=== PATIENT | male | born 1970 | race Caucasian/White ===

== ENCOUNTER 2020-12-14 07:50 | Outpatient (REF) | payer OTHER, SELFPAY ==
[2020-12-14 13:29] LABS: Anion Gap 6.6 mmol/L (3-11); BUN 22 mg/dL (7-18); CO2 27.4 mmol/L (21.0-32.0); CREATININE 1.1 mg/dL (0.70-1.30); Calcium 8.8 mg/dL (8.5-10.1); Chloride 103 mmol/L (98-107); Glucose 101 mg/dL (74-106); Potassium 4.7 mmol/L (3.5-5.1); Sodium 137 mmol/L (136-145)
== END 2020-12-14 08:10 ==
LOC: NCHCN 07:50
PROVIDERS: Visit Provider Nurse Practitioner Community Health
DX: I10 Essential (primary) hypertension (principal)
CPT/HCPCS: 80048

== ENCOUNTER 2021-02-04 09:29 | Outpatient (REF) | payer OTHER, SELFPAY ==
[2021-02-04 14:23] LABS: TSH (W/Ref FT4) 1.91 uIU/mL (0.36-3.74)
== END 2021-02-04 09:30 | disposition home or self-care (01) ==
LOC: NCHCN 09:29
PROVIDERS: Visit Provider Nurse Practitioner Community Health
DX: I10 Essential (primary) hypertension (principal); Z13.29 Encounter for screening for other suspected endocrine disorder
CPT/HCPCS: 84443

== ENCOUNTER 2021-06-12 16:01 | Outpatient (REF) | payer SELFPAY ==
[2021-06-12 14:39] LABS: Anion Gap 9.3 mmol/L (3-11); BUN 20 mg/dL (7-18); CO2 27.7 mmol/L (21.0-32.0); Calcium 9.1 mg/dL (8.5-10.1); Calculated LDL 73 mg/dL (<100); Chloride 106 mmol/L (98-107); Cholesterol 131 mg/dL (<200); Glucose 108 mg/dL (74-106); HDL Cholesterol 44 mg/dL (40-60); Potassium 4.6 mmol/L (3.5-5.1); Sodium 143 mmol/L (136-145); Triglyceride 72 mg/dL (<150)
== END 2021-06-12 16:02 | disposition home or self-care (01) ==
LOC: NCHCN 16:01
PROVIDERS: Visit Provider Nurse Practitioner Community Health
DX: E78.5 Hyperlipidemia, unspecified (principal); I10 Essential (primary) hypertension
CPT/HCPCS: 80048; 80061

== ENCOUNTER 2021-08-07 14:16 | Outpatient (REF) | payer OTHER, SELFPAY ==
[2021-08-07 14:51] LABS: Anion Gap 7.6 mmol/L (3-11); BUN 18 mg/dL (7-18); CO2 29.4 mmol/L (21.0-32.0); Calcium 9.4 mg/dL (8.5-10.1); Chloride 103 mmol/L (98-107); Glucose 97 mg/dL (74-106); Potassium 4.4 mmol/L (3.5-5.1); Sodium 140 mmol/L (136-145)
== END 2021-08-07 14:17 | disposition home or self-care (01) ==
LOC: NCHCN 14:16
PROVIDERS: Visit Provider Nurse Practitioner Community Health
DX: I10 Essential (primary) hypertension (principal)
CPT/HCPCS: 80048

== ENCOUNTER 2022-07-14 16:28 | Outpatient (REF) | payer OTHER, SELFPAY ==
[2022-07-14 17:47] LABS: Anion Gap 11.5 mmol/L (3-11); BUN 13 mg/dL (7-18); CO2 26.5 mmol/L (21.0-32.0); CREATININE 0.9 mg/dL (0.70-1.30); Chloride 104 mmol/L (98-107); Estimated GFR 104.05 (mL/min/1.73m2); Glucose 103 mg/dL (74-106); Potassium 4.2 mmol/L (3.5-5.1); Sodium 142 mmol/L (136-145)
[2022-07-14 17:49] LABS: Hemoglobin A1C 5.6 % (<5.7)
== END 2022-07-14 16:29 | disposition home or self-care (01) ==
LOC: NCHCN 16:28
PROVIDERS: Visit Provider Family Medicine
DX: I10 Essential (primary) hypertension (principal); E78.5 Hyperlipidemia, unspecified; E66.01 Morbid (severe) obesity due to excess calories; J45.20 Mild intermittent asthma, uncomplicated
CPT/HCPCS: 80048; 83036

== ENCOUNTER 2023-05-29 15:31 | Outpatient (REF) | payer OTHER, SELFPAY ==
[2023-05-29 15:06] LABS: Hemoglobin A1C 5.4 % (<5.7)
[2023-05-29 15:10] LABS: Anion Gap 9.4 mmol/L (3-11); BUN 19 mg/dL (7-18); CO2 27.6 mmol/L (21.0-32.0); CREATININE 1.2 mg/dL (0.70-1.30); Calcium 9.5 mg/dL (8.5-10.1); Calculated LDL 149 mg/dL (<100); Chloride 103 mmol/L (98-107); Cholesterol 211 mg/dL (<200); Estimated GFR 73.22 (mL/min/1.73m2); Glucose 117 mg/dL (74-106); HDL Cholesterol 38 mg/dL (40-60); Potassium 3.7 mmol/L (3.5-5.1); Sodium 140 mmol/L (136-145); Triglyceride 122 mg/dL (<150)
== END 2023-05-29 15:32 | disposition home or self-care (01) ==
LOC: NCHCN 15:31
PROVIDERS: PCP Family Medicine; Visit Provider Family Medicine
DX: I10 Essential (primary) hypertension (principal); E78.5 Hyperlipidemia, unspecified; Z13.1 Encounter for screening for diabetes mellitus
CPT/HCPCS: 80048; 80061; 83036

== ENCOUNTER 2023-11-26 16:27 | Outpatient (REF) | payer OTHER, SELFPAY ==
[2023-11-25 21:53] LABS: COMMENT (LAB VIEW ONLY) 113.05 mg/dL; Microalb ug/mg Crea 5.4 ug/mg Cr
== END 2023-11-26 16:28 | disposition home or self-care (01) ==
LOC: NCHCN 16:27
PROVIDERS: PCP Family Medicine; Visit Provider Family Medicine
DX: I10 Essential (primary) hypertension (principal)
CPT/HCPCS: 82043; 82570

== ENCOUNTER 2023-12-09 08:23 | Outpatient (REF) | payer OTHER, SELFPAY ==
[2023-12-09 15:31] LABS: Anion Gap 9.9 mmol/L (3-11); BUN 21 mg/dL (7-18); CO2 26.1 mmol/L (21.0-32.0); CREATININE 1.1 mg/dL (0.70-1.30); Calcium 9.9 mg/dL (8.5-10.1); Chloride 101 mmol/L (98-107); Estimated GFR 81.28 (mL/min/1.73m2); Glucose 104 mg/dL (74-106); Potassium 4.1 mmol/L (3.5-5.1); Sodium 137 mmol/L (136-145)
== END 2023-12-09 08:24 | disposition home or self-care (01) ==
LOC: NCHCN 08:23
PROVIDERS: PCP Family Medicine; Visit Provider Family Medicine
DX: I10 Essential (primary) hypertension (principal)
CPT/HCPCS: 80048

== ENCOUNTER 2024-06-27 10:31 | Outpatient (REF) | payer OTHER, SELFPAY ==
--- OUTSIDE RECORDS SUMMARY | 2024-06-27 10:34 | XMS_ITS | Encounter Summary ---
Author Organization [facility] Address [address] [place] [address] Care Team Providers Care Sociology Adjunct Instructor Name Role Phone Unknown, Provider Primary Care Provider [phone] Encounter Details Date Type Department Care Team (Late st Contact Info) Description 10/21/2022 Prep for Procedure [facility] General Surgery [address] [place] [address] Handy Riley MD [address] [facility] [place] [address] [place] [address] Social History Tobacco Use Types Packs/Day Years Used Date Smoking Tobacco: Never Smokeless Tobacco: Former Alcohol Use Standard Drinks/Week Comments Yes 0 (1 standard drink = 0.6 oz pur e alcohol) very occasional Interpersonal Safety Answer Date Record ed Physically Hurt Never 06/17/2020 Verbally Threaten Not on file 06/17/2020 Sex and Gender Information Value Date Recorded Sex Assigned at Not on file Gender Identity Not on file Sexual Orientation Not on file documented as of this encounter Plan of Treatment Not on file documented as of this encounter Visit Diagnoses Not on filedocumented in this encounter Care Teams Sociology Adjunct Instructor Relationship Specialty Start Date End Date Unknown, Provider, PCP - General 04/30/17 04/25/23 documented as of this encounter
--- OUTSIDE RECORDS SUMMARY | 2024-06-27 10:34 | XMS_ITS | Encounter Summary ---
Author Organization [facility] Address [address] [place] [address] Care Team Providers Care Uplands Division Director Name Role Phone None, Provider Primary Care Provider Unavailabl e Encounter Details Date Type Department Care Team (Late st Contact Info) Description 08/31/2015 Results Only [facility] [phone] Florencio Harvey, DO [address] [facility] DEMI NELSON [address] [place] [id number] Social History Tobacco Use Types Packs/Day Years Used Date Smoking Tobacco: Never Assessed Sex and Gender Information Value Date Recorded Sex Assigned at Not on file Gender Identity Not on file Sexual Orientation Not on file documented as of this encounter Plan of Treatment Not on file documented as of this encounter Procedures Procedure Name Priority Date/Time Associated Diagnosis Comments SURGICAL PATHOLOGY Routine 08/31/2015 6:37 EDT documented in this encounter Results * SURGICAL PATHOLOGY (08/31/2015 6:37 EDT) Pathology Report: SURGICAL PATHOLOGY REPORT Reports generated via electronic interface contain original data; however they are lacking the format of the original report. Caution should be taken when reading/interpret ing unformatted reports. Name: ? EPI YOUNG ? Accession #: ? [id number] ? : ? 1970 (Age: 45) ??M ? Collect Date: ? 08/31/2015 ? Location: ? [facility] ? Receive Date: ? 09/01/2015 ? Provider: FLORENCIO HARVEY DO Copy to: ? Final Pathologic Diagnosis: SOFT TISSUE OF BACK/NECK, MASS, EXCISIONAL BIOPSY: - Lipoma. ??See comment. 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 ??The fact that this is a recurrent lesion is noted; there are no atypical histologic features to suggest an atypical lipomatous tumor. ?? Document reviewed and electronically signed by: CUAUHTEMOC SMITH MD Report ??Date: 09/06/2015 15:54 By the signature above, the attending physician certifies that he/she has personally conducted a gross and/or microscopic examination of the described specimens and rendered or confirmed the above diagnosis. Specimen(s) Received: Lipoma Clinical History: Lipoma back of neck, recurrent Gross Description: ? Received in formalin labelled with proper patient identification (initials M, R) and lipoma are multiple fragments of yellow lobulated adipose tissue (22 g, 6.7 x 6.5 x 1.7 cm in aggregate) with an incomplete disrupted capsule. Cut surfaces show homogenous glistening adipose tissue. Ukrainian Folk Arts Instructor sections are submitted in 1-8. 09/03/2015 10:59 AM End of Report [facility] 08/31/2015 6:37 EDT 09/01/2015 6:37 EDT Florencio Harvey DO PATHOLOGY ORDER JASMEET [facility] [address] [place] [address] documented in this encounter Visit Diagnoses Not on filedocumented in this encounter Care Teams Uplands Division Director Relationship Specialty Start Date End Date None, Provider PCP - General 04/04/13 04/29/17 documented as of this encounter
--- OUTSIDE RECORDS SUMMARY | 2024-06-27 10:34 | XMS_ITS | Encounter Summary ---
Author Organization [facility] Address [address] [place] [address] Care Team Providers Care Garage Mechanic Name Role Phone Unavailable Primary Care Provider Unavailabl e Encounter Details Date Type Department Care Team (Late st Contact Info) Description 07/05/2009 Hospital Visit [facility] Lorraine Prasad Discharge Disposition: Discharge Home Social History Tobacco Use Types Packs/Day Years Used Date Smoking Tobacco: Never Assessed Sex and Gender Information Value Date Recorded Sex Assigned at Not on file Gender Identity Not on file Sexual Orientation Not on file documented as of this encounter Plan of Treatment Not on file documented as of this encounter Procedures Procedure Name Priority Date/Time Associated Diagnosis Comments STREP SCREEN RAPID Routine 07/05/2009 8: 15 PM EDT documented in this encounter Results * RAPID STREP SCREEN (07/05/2009 8:15 PM EDT) Strep Screen Rapid NEGATIVE NEGATIVE [facility] Comment:SECOND SWAB HAS BEEN CULTURED 07/05/2009 8:15 PM EDT 07/05/2009 8:22 PM EDT Lorraine Prasad MICROBIOLOGY - GENER AL ORDERABLES [facility] [address] [place] [address] documented in this encounter Visit Diagnoses Not on filedocumented in this encounter
--- OUTSIDE RECORDS SUMMARY | 2024-06-27 10:34 | XMS_ITS | Encounter Summary ---
Author Organization [facility] Address [address] [place] [address] Care Team Providers Care After School Program Director Name Role Phone Unavailable Primary Care Provider Unavailabl e Encounter Details Date Type Department Care Team (Latest Contact Info) Description 12/13/2000 14:56 EST Hospital Encounter [address] [address] Alejandro Ramirez MD Discharge Disposition: Auto Discharge Social History Tobacco Use Types Packs/Day Years Used Date Smoking Tobacco: Never Assessed Sex and Gender Information Value Date Recorded Sex Assigned at Not on file Gender Identity Not on file Sexual Orientation Not on file documented as of this encounter Discharge Disposition Disposition Code Departure Means Destination Auto Discharge documented in this encounter Plan of Treatment Not on file documented as of this encounter Visit Diagnoses Not on filedocumented in this encounter
--- OUTSIDE RECORDS SUMMARY | 2024-06-27 10:34 | XMS_ITS | Encounter Summary ---
Author Organization [facility] Address [address] [place] [address] Care Team Providers Care Final Finisher Forging Dies Name Role Phone Unknown, Provider Primary Care Provider [phone] Encounter Details Date Type Department Care Team (Latest Contact Info) Description 06/23/2019 11:17 EDT - 06/23/2019 11:25 EDT Hospital Encounter [address] [address] Selene Galan, MUSTAPHA [address] [facility] [place] [id number] Discharge Disposition: Home or Self Care Social History Tobacco Use Types Packs/Day Years Used Date Smoking Tobacco: Never Assessed Sex and Gender Information Value Date Recorded Sex Assigned at Not on file Gender Identity Not on file Sexual Orientation Not on file documented as of this encounter Discharge Diagnoses Diagnosis E87.5 HYPERKALEMIA[ICD-10-CM] documented in this encounter Discharge Disposition Disposition Code Departure Means Destination Home or Self Care documented in this encounter Plan of Treatment Not on file documented as of this encounter Visit Diagnoses Not on filedocumented in this encounter Care Teams Final Finisher Forging Dies Relationship Specialty Start Date End Date Unknown, Provider, PCP - General 04/30/17 04/25/23 documented as of this encounter
--- OUTSIDE RECORDS SUMMARY | 2024-06-27 10:34 | XMS_ITS | Referral Summary ---
Author Organization [facility] Address [address] [place] [address] Care Team Providers Care Gas Leak Inspector Name Role Phone Isa Walker MD Primary Care Provider [phone] Allergies Active Allergy Reactions Criticality Noted Date Comments Mold 04/30/2017 Medications Medication Sig Dispensed Refills Start Date End Date Status chlorthalidone (HYGROTON) 25 mg tablet Take 0.5 Tablets by mouth daily. Active semaglutide (RYBELSUS) 14 mg tablet Take 14 mg by mouth daily. Active Cholecalciferol, Vitamin D3, 10 mcg (400 unit) tablet Take 400 Units by mouth daily. Active nicotine polacrilex (NICORETTE) 2 mg gum Take 1 Each by mouth every 2 hours. Active lisinopriL (PRINIVIL) 20 mg tablet Take 1 Tablet by mouth daily. 04/09/2023 Active verapamil (VERELAN) 360 mg CR capsule Take 1 Capsule by mouth daily. 04/01/2023 Active budesonide-formoterol HFA (SYMBICORT) 160-4.5 mcg/actuation HFA aerosol inhaler inhaler inhale 1 puff by mouth twice daily 02/08/2023 Active atorvastatin (LIPITOR) 40 mg tablet Take 1 Tablet by mouth every evening. 05/07/2022 Active albuterol 90 mcg/actuation inhaler INHALE 2 PUFFS BY MOUTH FOUR TIMES DAILY 04/08/2023 Active LORazepam (ATIVAN) 1 mg tabletIndications:Sit uational anxiety Take 0.5 Tablets by mouth 2 times daily as needed for Anxiety. Daily Max: 1 mg 3 Tablet 04/26/2023 Active Active Problems Problem Noted Date Diagnosed Date Encounter for screening colonoscopy Social History Tobacco Use Types Packs/Day Years Used Date Smoking Tobacco: Never Smokeless Tobacco: Former Tobacco Cessation:Counseling Given: Not Answered Alcohol Use Standard Drinks/Week Comments Yes 0 (1 standard drink = 0.6 oz pur e alcohol) very occasional PHQ-2 Answer Date Recorded PHQ-2 SUBTOTAL 2 04/26/2023 Interpersonal Safety Answer Date Record ed Physically Hurt Never 06/17/2020 Verbally Threaten Not on file 06/17/2020 Sex and Gender Information Value Date Recorded Sex Assigned at Not on file Gender Identity Not on file Sexual Orientation Not on file Last Filed Vital Signs Vital Sign Reading Time Taken Comments Blood Pressure 137/83 04/26/2023 1145 EDT Pulse 83 04/26/2023 1145 EDT Temperature 37 ??C (98.6 ??F) 04/26/2023 1145 EDT Respiratory Rate 14 10/21/2022 0925 EST Oxygen Saturation 97% 04/26/2023 1145 EDT Inhaled Oxygen Concentration - - Weight 130.2 kg (287 lb) 10/21/2022 0812 EST Height 177.8 cm (5' 10) 10/21/2022 0812 EST Body Mass Index 41.18 10/21/2022 0812 EST Plan of Treatment Not on file Procedures Procedure Name Priority Date/Time Associated Diagnosis Comments COLONOSCOPY Routine 10/21/2022 8:45 EST Encounter for screening colonoscopy from Last 3 Months or Most Recently Relevant to Health Maintenance Results * COLONOSCOPY (10/21/2022 8:45 EST) Anatomical Region Laterality Modality Endoscopy Narrative 10/21/2022 8:45 EST [facility] ?? [address] [place] [address] ?? Patient Name ?EPI YOUNG Date of ?1970 Record Number ?[id number] Date/Time of Procedure ?10/21/2022, 08:45:00 AM Endoscopist ?Handy Riley ?? Kitchen Clerk ? Referring Physician(s) ?? Debbie Chan M.D. Anesthesiologist ? Procedure Performed: COLONOSCOPY Indications for Exam: Screening Colonoscopy. Instruments: ? [id number] ([id number]) Medications: ?Fentanyl 100 mcg, Versed 5 mg I was in continuous face to face attendance during the administration of moderate sedation services that were monitored by an independent trained observer who had no other duties during the procedure. ? Visualization: ? Good ?Tolerance: Good ?Complications: None ? Extent of Exam: ?cecum ? Limitations: ?Suboptimal prep Procedure Technique: A physical exam was performed. Informed consent was obtained from the patient after explaining all the risks (perforation, bleeding, infection and adverse effects to the medicine) , benefits and alternatives to the procedure which the patient appeared to understand and so stated. ??The patient was connected to the monitoring devices and placed in the left lateral position. Continuous oxygen was provided with a nasal cannula and IV medicine administered thru an indwelling cannula. After adequate conscious sedation was achieved, a digital exam was performed and the colonoscope introduced into the rectum and advanced under direct visualization to the cecum which was identified by visual landmarks. The scope was subsequently removed slowly while carefully examining the color, texture, anatomy, and integrity of the mucosa on the way out. In the rectum the scope was retroflexed to evaluate for internal hemorrhoids and anorectal pathology. The patient was subsequently transferred to the recovery area in satisfactory condition. The following findings were noted: Findings: Normal rectal exam. ??Normal colon mucosa. ??No poyps or masses. ??Scattered diverticulosis of the sigmoid colon. Endoscopic Diagnosis: Normal screening colonoscopy Recommendations: Repeat colonoscopy in 10 years.Consider Golytely prep with next colonoscopy prep. Sedation Start: 08:31:20 AM ?? Sedation End: 08:51:29 AM Signature: Paddy Hunt.A.C.Gerson This note was electronically signed on 10/21/2022 11:41:44 AM By Handy [email or web address] Luz Maria Chan ASSEMBLER B[employer] GI PROCEDURE ORDERAB LES from Last 3 Months or Most Recently Relevant to Health Maintenance Care Teams Gas Leak Inspector Relationship Specialty Start Date End Date Isa Walker MD [address] [place] [phone] PCP - General 04/26/23
--- OUTSIDE RECORDS SUMMARY | 2024-06-27 10:34 | XMS_ITS | Encounter Summary ---
Author Organization [facility] Address [address] [place] [address] Care Team Providers Care All Around Patternmaker Name Role Phone Unknown, Provider Primary Care Provider [phone] Reason for Visit * Reason Onset Date Comments Colonoscopy 09/24/2022 Encounter Details Date Type Department Care Team (Late st Contact Info) Description 09/24/2022 Telephone [facility] [place] [address] [place] [address] Handy Riley MD [address] [facility] [address] [place] [address] Colonoscopy (/) Social History Tobacco Use Types Packs/Day Years Used Date Smoking Tobacco: Never Assessed Interpersonal Safety Answer Date Record ed Physically Hurt Never 06/17/2020 Verbally Threaten Not on file 06/17/2020 Sex and Gender Information Value Date Recorded Sex Assigned at Not on file Gender Identity Not on file Sexual Orientation Not on file documented as of this encounter Miscellaneous Notes * Telephone Encounter - Sallie Pugh - 09/25/2022 1321 EST Pt called back He is good to go for his colo on October 21. I have resent instructions to him They were emailed to: [email or web address] * Telephone Encounter - Sallie Pugh - 09/24/2022 1147 EST Pt ret'd my call He said he needs to check with his insurance company first. He said his recently had one done and they made her go go fabiola He will call me back on 09/25 * Telephone Encounter - Sallie Pugh - 09/24/2022 1136 EST [email or web address] ?? Pt was scheduled for a colonoscopy on 10/21. I need to speak with patient to find out if he received this information or not. ?? Reason is: When I was out for surgery, colo's were scheduled and the patients were not notified andthey didn't receive their colo packets. ?? Please transfer call to Sallie documented in this encounter Plan of Treatment Not on file documented as of this encounter Visit Diagnoses Not on filedocumented in this encounter Care Teams All Around Patternmaker Relationship Specialty Start Date End Date Unknown, Provider, PCP - General 04/30/17 04/25/23 documented as of this encounter
--- OUTSIDE RECORDS SUMMARY | 2024-06-27 10:34 | XMS_ITS | Encounter Summary ---
Author Organization [facility] Address [address] [place] [address] Care Team Providers Care Press Operator Meat Name Role Phone Unavailable Primary Care Provider Unavailabl e Encounter Details Date Type Department Care Team (Late st Contact Info) Description 11/27/2007 12:29 [facility] Hospital Encounter [address] [address] Demetra Colon MD Social History Tobacco Use Types Packs/Day Years [...]
--- OUTSIDE RECORDS SUMMARY | 2024-06-27 10:34 | XMS_ITS | Encounter Summary ---
Author Organization [facility] Address [address] [place] [address] Care Team Providers Care Actuarial Associate Name Role Phone Unknown, Provider Primary Care Provider Reason for Visit * Reason Onset Date Comments Colonoscopy 10/20/2022 Encounter Details Date Type Department Care Team (Late st Contact Info) Description 10/20/2022 Telephone [facility] [place] [address] [place] [address] Handy Riley MD [address] [facility] [address] [place] [address] Colonoscopy Social History Tobacco Use Types Packs/Day Years Used Date Smoking Tobacco: Never Assessed Interpersonal Safety Answer Date Record ed Physically Hurt Never 06/17/2020 Verbally Threaten Not on file 06/17/2020 Sex and Gender Information Value Date Recorded Sex Assigned at Not on file Gender Identity Not on file Sexual Orientation Not on file documented as of this encounter Miscellaneous Notes * Telephone Encounter - Candelaria Guadarrama RN - 10/20/2022 1444 EST Spoke with pt he has developed a cough and cold symptoms. Pt states he knows he does not have COVIDbut agrees to do a home test. Per Dr. Riley as long as COVID negative and if pt feels up for it we can proceed with the colonoscopy as planned. Pt understands and will call if COVID test is positive, otherwise he plans to proceed as scheduled tomorrow. No further interventions. * Telephone Encounter - Rosibel Olmos - 10/20/2022 1329 EST Patient is calling regarding his colonoscopy tomorrow. He states he developed some slight cold symptoms yesterday. He thinks it will be okay to proceed but thought he should talk to a nurse just in case. Please call him at [phone]. documented in this encounter Plan of Treatment Not on file documented as of this encounter Visit Diagnoses Not on filedocumented in this encounter Care Teams Actuarial Associate Relationship Specialty Start Date End Date Unknown, Provider, PCP - General 04/30/17 04/25/23 documented as of this encounter
--- OUTSIDE RECORDS SUMMARY | 2024-06-27 10:34 | XMS_ITS | Encounter Summary ---
Author Organization [facility] Address [address] [place] [address] Care Team Providers Care Fire Investigation Manager Name Role Phone None, Provider Primary Care Provider Unavailabl e Encounter Details Date Type Department Care Team (Latest Contact Info) Description 04/20/2017 10:11 EDT - 04/20/2017 10:12 EDT Hospital Encounter [address] [address] Vida Campbell NP [facility] [address] [place], [place] [id number] Discharge Disposition: Home or Self Care Social History Tobacco Use Types Packs/Day Years Used Date Smoking Tobacco: Never Assessed Sex and Gender Information Value Date Recorded Sex Assigned at Not on file Gender Identity Not on file Sexual Orientation Not on file documented as of this encounter Discharge Diagnoses Diagnosis I10 Essential (primary) hypertension-I10[ICD-10-CM] E55.9 Vitamin D deficiency, unspecified-E55.9[ICD-10-CM] documented in this encounter Discharge Disposition Disposition Code Departure Means Destination Home or Self Care documented in this encounter Plan of Treatment Not on file documented as of this encounter Visit Diagnoses Not on filedocumented in this encounter Care Teams Fire Investigation Manager Relationship Specialty Start Date End Date None, Provider PCP - General 04/04/13 04/29/17 documented as of this encounter
--- OUTSIDE RECORDS SUMMARY | 2024-06-27 10:34 | XMS_ITS | Encounter Summary ---
Author Organization [facility] Address [address] [place] [address] Care Team Providers Care Tradeshow Worker Name Role Phone Unknown, Provider Primary Care Provider [phone] Isa Walker MD Primary Care Provider [phone] Encounter Details Date Type Department Care Team (Late st Contact Info) Description 11/23/2019 Lab Requisition [facility] Pathology & Laboratory Medicine - [address] [address] Selene Galan PA-C [address] [place], [place] [phone] Essential (primary) hypertension Social History Tobacco Use Types Packs/Day Years Used Date Smoking Tobacco: Never Assessed Sex and Gender Information Value Date Recorded Sex Assigned at Not on file Gender Identity Not on file Sexual Orientation Not on file documented as of this encounter Plan of Treatment Not on file documented as of this encounter Procedures Procedure Name Priority Date/Time Associated Diagnosis Comments LIPID PROFILE (INCLUDES CHOLESTEROL, TRIGLYCERIDES, HDL, LDL) Today 11/23/2019 9:20 EST Essential (primary) hypertension COMPREHENSIVE METABOLIC PANEL (CMP) Today 11/23/2019 9:20 EST Essential (primary) hypertension documented in this encounter Results * LIPID PROFILE (INCLUDES CHOLESTEROL, TRIGLYCERIDES, HDL, LDL) (11/23/2019 9:20 EST) Cholesterol 198 See Note mg/dL 11/23/2019 17:14 EST [facility] Comment: Acceptable: ?<200 mg/dL Borderline High: 200-239 mg/dL High: ?> or = 240 mg/dL HDL 32 See Note mg/dL 11/23/2019 17:14 [facility] Comment: Low: ? <40 mg/dL Normal: ??40-60 mg/dL High: ?>60 mg/dL LDL, Calculated 118 See Note mg/dL 11/23/2019 17:14 [facility] Comment: Optimal: ? <100 mg/dL Near Optimal: ?100-129 mg/dL Borderline High: 130-159 mg/dL High: ?160-189 mg/dL Very High: ? > or = 190 mg/dL Triglyceride 242 See Note mg/dL 11/23/2019 17:14 [facility] Comment: Normal: ? <150 mg/dL Borderline High: ??150 - 199 mg/dL High: ? 200 - 499 mg/dL Very High: ?> or = 500 mg/dL Chol/HDL Ratio 6.2 See Note 11/23/2019 17:14 [facility] Comment: No reference range has been established for CHOL/HDL ratio. Non HDL Cholesterol 166 See Note mg/dL 11/23/2019 17:14 [facility] Comment: Desirable: ?<130 mg/dL Borderline High: ??130-159 mg/dL High: ? 160-189 mg/dL Very High: ?> or = 190 mg/dL Blood VENOUS BLOOD / Unknown Venipuncture / Unknown 11/23/2019 9:20 EST 11/23/2019 16:50 EST Selene Galan PA-C CHEMISTRY & BLOOD G ORDERABLES [facility] [address] [place] [address] * COMPREHENSIVE METABOLIC PANEL (CMP) (11/23/2019 9:20 EST) Sodium 137 136 - 145 mEq/L 11/23/2019 17:14 [facility] Potassium 4.9 3.5 - 5.0 mEq/L 11/23/2019 17:14 [facility] Chloride 105 96 - 110 mEq/L 11/23/2019 17:14 [facility] CO2 Total 22 22 - 32 mEq/L 11/23/2019 17:14 [facility] Glucose 100 70 - 100 mg/dL 11/23/2019 17:14 [facility] BUN 19 10 - 26 mg/dL 11/23/2019 17:14 [facility] Creatinine 0.85 0.66 - 1.25 mg/dL 11/23/2019 17:14 [facility] eGFR 104 >60 mL/min/1.7 3m2 11/23/2019 17:14 [facility] Comment:eGFR calculated shira greenfield CKD-EPI equation for non- Americans. Multiply eGFR by 1.16 for patients. Total Protein 7.2 6.3 - 8.2 g/dL 11/23/2019 17:14 [facility] Albumin 4.7 3.4 - 4.9 g/dL 11/23/2019 17:14 [facility] Alkaline Phosphatase 63 38 - 126 U/L 11/23/2019 17:14 [facility] AST 27 15 - 46 U/L 11/23/2019 17:14 [facility] ALT 34 <50 U/L 11/23/2019 17:14 [facility] Bilirubin, Total 0.8 <1.4 mg/dL 11/23/19 17:14 [facility] Calcium 9.6 8.5 - 10.5 mg/dL 11/23/2019 17:14 [facility] Calculated Calcium 9.0 8.5 - 10.5 mg/dL 11/23/2019 17:14 [facility] Blood VENOUS BLOOD / Unknown Venipuncture / Unknown 11/23/2019 9:20 EST 11/23/2019 16:50 EST Selene Galan PA-C CHEMISTRY & BLOOD G ORDERABLES [facility] [address] [place] [address] documented in this encounter Visit Diagnoses Diagnosis Essential (primary) hypertension Unspecified essential hypertension documented in this encounter Care Teams Tradeshow Worker Relationship Specialty Start Date End Date Unknown, Provider, PCP - General 04/30/17 04/25/23 Isa Walker MD [address] [place] [address] PCP - General 04/26/23 documented as of this encounter
--- OUTSIDE RECORDS SUMMARY | 2024-06-27 10:34 | XMS_ITS | Encounter Summary ---
Author Organization [facility] Address [address] [place] [address] Care Team Providers Care Sound Technician Supervisor Name Role Phone Unavailable Primary Care Provider Unavailabl e Encounter Details Date Type Department Care Team (Latest Contact Info) Description 11/13/2007 16:18 EST Hospital Encounter [address] [address] Mark Lima MD [address] [place] [phone] Discharge Disposition: Auto Discharge Social History Tobacco [...] Procedure Name Priority Date/Time Associated Diagnosis Comments CHEST PA AND LATERAL 11/13/2007 17:48 EST documented in this encounter Results * CHEST PA AND LATERAL (11/13/2007 17:48 EST) Anatomical Region Laterality Modality Other 11/13/2007 17:4 8 EST Narrative 05/07/2009 4:47 EDT savi haji pt [id number] 3-4 weeks cough weezing in non asthmatic diffuse wheezing on exam CHEST PA AND LAT ??Nov 13, 2007 5:48:00 PM Signs and Symptoms: ??savi cullen pt [id number] 3-4 weeks cough weezing in non asthmatic diffuse wheezing on exam Comparison: None Findings: ??PA and lateral views of the chest were obtained. ??The cardiomediastinal silhouette is within normal limits. Costophrenic angles are clear. Lungs are clear. No infiltrate is seen. There is no pneumothorax. Impression: Normal chest x-ray. I have personally reviewed the images and the above interpretation and agree with the findings. Procedure Note Franky Lara MD / Candace Erickson MD - 05/07/2009 [facility] pt [id number] 3-4 weeks cough weezing in non asthmatic diffuse wheezing on exam CHEST PA AND LAT Nov 13, 2007 5:48:00 PM Signs and Symptoms: savi [facility] pt [id number] 3-4 weeks cough weezing in non asthmatic diffuse wheezing on exam Comparison: None Findings: PA and lateral views of the chest were obtained. The cardiomediastinal silhouette is within normal limits. Costophrenic angles are clear. Lungs are clear. No infiltrate is seen. There is no pneumothorax. Impression: Normal chest x-ray. I have personally reviewed the images and the above interpretation and agree with the findings. Mark Lima MD IMG DIAGNOSTIC IMAGING ORDERABLES documented in this encounter Visit Diagnoses Not on filedocumented in this encounter
--- OUTSIDE RECORDS SUMMARY | 2024-06-27 10:34 | XMS_ITS | Encounter Summary ---
Author Organization [facility] Address [address] [place] [address] Care Team Providers Care Sba Business Development Officer Name Role Phone Isa Walker MD Primary Care Provider [phone] Reason for Visit * Reason Comments Insomnia HAS ANXIETY Encounter Details Date Type Department Care Team (Late st Contact Info) Description 04/26/2023 12:15 EDT Walk-In [address] [address] Jefferson Petersen MD [address] [place] [id number] Situational anxiety (Primary Dx) Social History Tobacco Use Types Packs/Day Years [...] on file documented as of this encounter Last Filed Vital Signs Vital Sign Reading Time Taken Comments Blood Pressure 137/83 04/26/2023 1145 EDT Pulse 83 04/26/2023 1145 EDT Temperature 37 ??C (98.6 ??F) 04/26/2023 1145 EDT Respiratory Rate - - Oxygen Saturation 97% 04/26/2023 1145 EDT Inhaled Oxygen Concentration - - Weight - - Height - - Body Mass Index - - documented in this encounter Patient Instructions * Patient Instructions* Jefferson Petersen MD - 04/26/2023 12:15 EDT 1. Regarding your symptoms, this is consistent with situational anxiety. I recommend that you do asmuch as you can to distract yourself from thinking about the issues. This could include exercise, project work, or other activities that you may enjoy. Additionally we will send a prescription to your pharmacy for lorazepam 1 mg and I recommend that you can take half a tablet twice a day as needed.Do not take this medication with alcohol and it is not recommended to take the medication before driving or operating heavy machinery. I recommend that you follow-up with your primary care physician and if you have any persistent or new concerning symptoms please do not hesitate to follow-up at [facility] as well. documented in this encounter Ordered Prescriptions Prescription Sig Dispensed Refills Start Date End Da te LORazepam (ATIVAN) 1 mg tabletIndications:Situatio nal anxiety Take 0.5 Tablets by mouth 2 times daily as needed for Anxiety. Daily Max: 1 mg 3 Tablet 04/26/2023 documented in this encounter Progress Notes * Dalia Barboza LPN - 04/26/2023 1215 EDT CC/HPI: Covid Screening: In the last 72 hours, has the patient had: New or unusual cough, shortness of breath, new nasal congestion, sore throat, fever, chills, body aches, or new loss of taste or smell without a reasonable alternative diagnosis*? (If yes, assign to ARC)- NO In the past 10 days, has the patient had a positive Covid test OR a confirmed close Covid exposure (<6ft for > 15mins in 24hr period)? (if yes, assign to ARC, regardless of vaccination status)-NO *may be determined by RN or in discussion with available provider (REPRODUCTION TECHNICIAN's and CCA's can defer to Charge Nurse to complete triage when appropriate) PCP: Isa Walker LEFT MESSAGE TO CALL BACK * Jefferson Petersen MD - 04/26/2023 1215 EDT [place] Primary Care Assessment & Plan: 1. Situational anxiety LORazepam (ATIVAN) 1 mg tablet Aureliano Llamas is a pleasant 53 yrs old male with situational anxiety. Patient Instructions 1. Regarding your symptoms, this is consistent with situational anxiety. I recommend that you do asmuch as you can to distract yourself from thinking about the issues. This could include exercise, project work, or other activities that you may enjoy. Additionally we will send a prescription to your pharmacy for lorazepam 1 mg and I recommend that you can take half a tablet twice a day as needed.Do not take this medication with alcohol and it is not recommended to take the medication before driving or operating heavy machinery. I recommend that you follow-up with your primary care physician and if you have any persistent or new concerning symptoms please do not hesitate to follow-up at [facility] as well. Subjective: Chief Complaint(s): Insomnia (HAS ANXIETY) HPI: Aureliano Llamas is a pleasant 53 yrs old male who comes in today noting that a few months ago he reached out for an employee retention program for covid relief. He brought it to his management accountant and hegan to wonder if it was a scam. Now he is quite worried that he might be at risk. Now he is having anxiety and can't sleep. This has happened in the past. He can't stop thinking that he might have screwed up. It feels like there is something pouring into his body. Normally he is not like this. 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 At the time he took prozac whichworked for him. He has an appointment with his PCP in [place] tomorrow. He is having a hard time sl eeping. He is hoping to get something to help him sleep tonight. 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 He has had a counselor in the past and tries to do some breathing exercises. I have reviewed patient's tobacco history: reports that he has never smoked. He has quit using smokeless tobacco. I have reviewed and updated pertinent problem list, PMHx,PSHx,SocHx, allergies, and medications today. ROS Objective: Examination: Vitals: BP 137/83 (BP Cuff Location: Right arm, BP Patient Position: Sitting, BP Cuff Sizes: Adult, large) Pulse 83 Temp 37 ??C (98.6 ??F) (Skin) SpO2 97% There is no height or weight on file to calculate BMI. General Exam: GENERAL APPEARANCE: no acute distress, pleasant, cooperative. HEENT: NCAT, anicteric sclera. NECK: No masses noted, trachea midline CHEST: normal shape and expansion. EXTREMITIES: no clubbing, no cyanosis, no edema. SKIN: warm & dry. FACE: no lesions. NEUROLOGIC EXAM: alert & oriented, gait normal. Data reviewed with patient: I have reviewed the pertinent laboratory and diagnostic information in the chart with the patient and answered all questions today. Jefferson Petersen MD An appropriate medical screening examination was performed. The patient was assessed prior to discharge and deemed stable for discharge home. I spent a total of 28 minutes on the date of this encounter meeting with the patient and reviewing documentation/coordinating care as described in the above note. documented in this encounter Plan of Treatment Not on file documented as of this encounter Visit Diagnoses Diagnosis Situational anxiety- Primary Other anxiety states documented in this encounter Discontinued Medications Medication Sig Discontinue Reason Start Date End Da te lisinopriL (PRINIVIL) 10 mg tablet Take 1 Tablet by mouth daily. 04/26/2023 verapamil (CALAN-SR) 180 mg CR tablet Take 1 Tablet by mouth daily. 04/26/2023 documented as of this encounter Historical Medications * This list may reflect changes made after this encounter. Medication Sig Dispensed Refills Start Date End Date albuterol 90 mcg/actuation inhaler INHALE 2 PUFFS BY MOUTH FOUR TIMES DAILY 04/08/2023 atorvastatin (LIPITOR) 40 mg tablet Take 1 Tablet by mouth every evening. 05/07/2022 budesonide-formoterol HFA (SYMBICORT) 160-4.5 mcg/actuation HFA aerosol inhaler inhaler inhale 1 puff by mouth twice daily 02/08/2023 verapamil (VERELAN) 360 mg CR capsule Take 1 Capsule by mouth daily. 04/01/2023 lisinopriL (PRINIVIL) 20 mg tablet Take 1 Tablet by mouth daily. 04/09/2023 added in this encounter Care Teams Sba Business Development Officer Relationship Specialty Start Date End Date Isa Walker MD [address] [place] [address] PCP - General 04/26/23 documented as of this encounter
--- OUTSIDE RECORDS SUMMARY | 2024-06-27 10:34 | XMS_ITS | Encounter Summary ---
Author Organization [facility] Address [address] [place] [address] Care Team Providers Care Paste Plant Supervisor Name Role Phone Unavailable Primary Care Provider Unavailabl e Encounter Details Date Type Department Care Team (Late st Contact Info) Description 11/13/[address] [facility] [address] [place] [address] Mark Lima MD [address] [place] [phone] Social History Tobacco Use Types Packs/Day Years Used Date Smoking Tobacco: Never Assessed Sex and Gender Information Value Date Recorded Sex Assigned at Not on file Gender Identity Not on file Sexual Orientation Not on file documented as of this encounter Progress Notes * Mark Lima MD - 01/06/2010 0638 EST [facility] - Physician Summary Registration Date/Time: 11/13/2007 16:26 Arrived- By private vehicle. Historian- patient. HISTORY OF PRESENT ILLNESS Chief Complaint: COUGH. This started about 21 days and is still present (chronic cough starting in the setting of a URI, with scant mucous and some wheezing, ). The illness is described as moderate. He has had a cough. The patient has had scant amounts of sputum. No fever, muscle aches or chills. Patient has not had similar symptoms previously. Not recently seen/assessed. REVIEW OF SYSTEMS No headache, eye discomfort, nausea, vomiting or diarrhea. No abdominal pain. PAST HISTORY Asthma ? hx of mild exercise induced asthma. Medications: None. though he tried his 's albuterol with some relief.. Allergies: No known drug allergies. SOCIAL HISTORY Nonsmoker. FAMILY HISTORY Negative. PHYSICAL EXAM Appearance: Alert. No acute distress. Eyes: Eyes normal inspection. ENT: Ears normal. Nose normal. Pharynx normal. Neck: Normal inspection. Neck supple. CVS: Normal heart rate and rhythm. Heart sounds normal. Respiratory: No respiratory distress. Wheezing present (diffuse, good air movement, 90% resolved after albuterol nebulizer treatment.). Abdomen: Abdomen soft and nontender. No organomegaly. Skin: Normal skin color. Skin warm and dry. No rash. Neuro: Oriented X 3. No motor deficit. No sensory deficit. LABS, X-RAYS, AND EKG Chest X-ray: Normal Chest X-Ray (faint bronchialar prominence). PROGRESS AND PROCEDURES E.D. Course: good clinical response to albuterol, moderate improvement of his peak flow. Disposition: Discharged home in good condition. CLINICAL IMPRESSION Chronic asthmatic bronchitis (bacterial). INSTRUCTIONS Take clear liquids only. (Steamy showers to clear lungs after 2 albuterol puffs spaced 10 minutes apart. Get evaluated if you get more short of breath or are not getting better consistently over the next week. You may want to try some diphenhydramine [generic benedryl] to help control post nasal drip.). Your Current Medications: Continue taking the following medications: none. Prescription Medications: Albuterol HFA oral inhaler: inhale 2 puffs each 6 hours until symptoms resolve as needed for wheezing. Dispense one (1) unit. One refill (may use non-hfa). Doxycycline 100 mg: Take 1 capsule orally every 12 hours for 10 days. No refill. Prednisone 20 mg: take 2 orally every day for 5 days. Dispense ten (10). No refills. Understanding of the discharge instructions verbalized by patient. (Electronically signed by Mark Lima MD 11/13/2007 19:38) Care Center - Nursing Summary Registration Date/Time: 11/13/2007 16:26 TRIAGE Initial Assessment Triage time 16:43. BP: 142 / 92 sitting L arm manual. HR: 84. RR: 16. Temp: 98.2 oral. O2 saturation: 98 % to 99% ra. --1649 Dianna Driver R.N. RR: 22 ( after changing to gown). O2 saturation: 95 % room air. --1655 Dianna Driver R.N.. Medications None. --1649 Dianna Driver R.N.. Allergies (seasonal allergies). No known drug allergies. --1649 Dianna Driver R.N.. History Chief Complaint: WHEEZING. Onset (2 1/2 weeks ago). Pain level now: 12/26. Pain level (h/a). The patient has had a moderate nonproductive cough. The patient has had low grade fever. (wheezing upon exertion and at hs). No difficulty breathing. Treatment JOURNEYMAN MOLDER: (pt has used 's albuterol inhaler x 2 days with some relief). PAST HX: No infectious disease exposure. (lipoma to neck). (sinusitis, obesity, seasonal asthma). SOCIAL HX: Alcohol use; consumes four liquor weekly. Nonsmoker. No report of abuse. Arrived by private vehicle. Historian: patient. --1649 Dianna Driver R.N.. PAST HX. PHYSICAL ASSESSMENT Ambulatory to room. Alert. Oriented X 3. Respirations not labored. The patient can speak in full sentences. Wheezes bilaterally. Skin is warm and dry. --1653 Dianna Driver R.N.. NURSING PROGRESS NOTES (report given to George Cleveland). --1657 Dianna Driver R.N. (report given to MD Lima). --1658 Dianna Driver R.N. ALBUTEROL nebulizer treatment #1 (2.5 mg in 3 mL NS) given by nurse. Time-out completed immediately before the procedure: verified identity of patient (name and birthdate). Peak flow: 250, prior to neb treatment (adequate effort). --1803 Linda Cleveland L.P.N. Peak flow: 270 liters/min. --1848 Dianelys Sethi R.N. Time-out completed immediately before the procedure per protocol: verified identity of patient (name and birthdate) and procedure; verification done by care team (nurse). . --1857 Marzena Delarosa R.N.. DISPOSITION / DISCHARGE at departure: stable. Patient reports pain level on departure as 0/10. No learning barriers present. Discharge instructions reviewed with the patient. Reviewed medication dosing and course; prescription (s) given to the patient (Prednisone,Dicloxicillin, Albuterol). Patient verbalized understanding. Written instructions provided in [place]. The patient was discharged home. The patient left the Emergency Department ambulatory. --4220 Marzena Delarosa R.N.. Locked/Released at 11/13/2007 18:59 by Marzena Delarosa R.N. documented in this encounter Plan of Treatment Not on file documented as of this encounter Visit Diagnoses Not on filedocumented in this encounter
--- OUTSIDE RECORDS SUMMARY | 2024-06-27 10:34 | XMS_ITS | Encounter Summary ---
Author Organization [facility] Address [address] [place] [address] Care Team Providers Care Special Diet Cook Name Role Phone None, Provider Primary Care Provider Unavailabl e Encounter Details Date Type Department Care Team (Late st Contact Info) Description 04/20/2017 Results Only [facility] [phone] Vida Campbell NP [facility] [address] [place], [place] [id number] Social History Tobacco Use Types Packs/Day Years Used Date Smoking Tobacco: Never Assessed Sex and Gender Information Value Date Recorded Sex Assigned at Not on file Gender Identity Not on file Sexual Orientation Not on file documented as of this encounter Plan of Treatment Not on file documented as of this encounter Procedures Procedure Name Priority Date/Time Associated Diagnosis Comments VITAMIN D (25,OH) Routine 04/20/2017 19: 16 EDT COMPLETE BLOOD COUNT AND DIFFERENTIAL Routine 04/20/2017 19:16 EDT TSH Routine 04/20/2017 19:16 EDT LIPID PROFILE (INCLUDES CHOLESTEROL, TRIGLYCERIDES, HDL, LDL) Routine 04/20/2017 19:16 EDT COMPREHENSIVE METABOLIC PANEL (CMP) Routine 04/20/2017 19:16 EDT documented in this encounter Results * (ABNORMAL) VITAMIN D (25,OH) (04/20/2017 19:16 EDT) 25OH Vitamin D Tot 16.9(L) 30 - 100 ng/ml 04/21/2017 14:54 EDT [facility] Comment: Reference Range: Deficient = <10 ng/ml Insufficient = 10-30 ng/ml Sufficient = 30-100 ng/ml Toxic = >100 ng/ml BLOOD SPECIMEN / Unknown 04/20/2017 19:16 EDT 04/20/2017 19:16 EDT Vida Campbell CAREER DEVELOPMENT SPECIALIST CHEMISTRY & BLOOD GA S ORDERABLES Performing Organization Address [facility] Co de Phone Number [facility] [address] [place] [address] * TSH (04/20/2017 19:16 EDT) TSH 2.21 0.55 - 4.78 uIU/ml 04/20/2017 21:35 EDT [facility] BLOOD SPECIMEN / Unknown 04/20/2017 19:16 EDT 04/20/2017 19:16 EDT Vida Campbell CAREER DEVELOPMENT SPECIALIST CHEMISTRY & BLOOD GA S ORDERABLES Performing Organization Address [facility] de Phone Number [facility] [address] [place] [address] * LIPID PROFILE (INCLUDES CHOLESTEROL, TRIGLYCERIDES, HDL, LDL) (04/20/2017 19:16 EDT) Cholesterol 194 mg/dl 04/20/2017 20:16 [facility] Comment: Desirable:<200 Borderline High:200-239 High:>ng=229 Triglycerides 250 mg/dl 04/20/2017 20:16 [facility] Comment: Normal:<150 Borderline High:150-199 High:200-499 Very High:>sh=528 HDL 35 mg/dl 04/20/2017 20:16 [facility] Comment: Low:<40 Normal:40-60 Desirable: >60 LDL, Calculated 109 mg/dl 7 20:16 [facility] Comment: Optimal:<100 Near Optimal:100-129 Borderline High:130-159 High:160-189 Very High:>rj=944 Chol/HDL Ratio 5.5 04/20/2017 20:16 [facility] Fasting? Unknown 04/20/2017 19:17 [facility] Non HDL Cholesterol 159 mg/dl 04/20/2017 20:16 [facility] Comment: Desirable:<130 Borderline:130-159 High: 160-189 Very High: >fz=118 BLOOD SPECIMEN / Unknown 04/20/2017 19:16 EDT 04/20/2017 19:16 EDT Vida Campbell NP CHEMISTRY & BLOOD GA S ORDERABLES [facility] [address] [place] [address] * COMPREHENSIVE METABOLIC PANEL (CMP) (04/20/2017 19:16 EDT) Potassium 4.7 3.5 - 5.0 mEq/L 04/20/2017 20:16 [facility] Sodium 142 136 - 145 mEq/L 04/20/2017 20:16 [facility] Chloride 103 96 - 110 mEq/L 04/20/2017 20:16 [facility] CO2 27 22 - 32 mEq/L 04/20/2017 20:16 [facility] Total Alkaline Phosphatase 59 38 - 126 U/L 04/20/2017 20:16 [facility] Bilirubin, Total 0.7 <1.4 mg/dl 04/20/20 17 20:16 [facility] AST 23 15 - 46 U/L 04/20/2017 20:16 [facility] ALT 42 21 - 72 U/L 04/20/2017 20:16 [facility] Albumin 4.7 3.4 - 4.9 g/dl 04/20/2017 20:16 [facility] Total Protein 7.5 6.3 - 8.2 g/dl 04/20/2017 20:16 [facility] Creatinine 0.98 0.66 - 1.25 mg/dl 04/20/2017 20:16 [facility] GFR, Calculated 93 >60 ml/min/1.7 3m2 04/20/2017 20:16 [facility] Comment: eGFR calculated using CKD-EPI equation for non Americans. Multiply eGFR by 1.16 for Americans. BUN 19 10 - 26 mg/dl 04/20/2017 20:16 [facility] Calcium 9.8 8.5 - 10.5 mg/dl 04/20/2017 20:16 [facility] Calculated Calcium 9.2 8.5 - 10.5 mg/dl 04/20/2017 20:16 [facility] Glucose, Serum 97 70 - 100 mg/dl 04/20/2017 20:16 [facility] Fasting? Unknown 04/20/2017 19:17 [facility] BLOOD SPECIMEN / Unknown 04/20/2017 19:16 EDT 04/20/2017 19:16 EDT Vida Campbell NP CHEMISTRY & BLOOD GA S ORDERABLES [facility] [address] [place] [address] * HEMAGRAM AND DIFFERENTIAL (04/20/2017 19:16 EDT) WBC 5.77 4.0 - 10.4 K/cmm 04/20/2017 20:05 [facility] RBC 5.11 4.36 - 5.78 M/cmm 04/20/2017 20:05 [facility] Hemoglobin 14.6 13.8 - 17.3 gm/dl 04/20/2017 20:05 [facility] HCT 43.3 39.5 - 50.2 % 04/20/2017 20:05 [facility] MCV 85 81 - 95 fl 04/20/2017 20:05 [facility] MCH 28.6 27.6 - 33.0 pg 04/20/2017 20:05 [facility] MCHC 33.7 32.8 - 36.4 gm/dl 04/20/2017 20:05 [facility] RDW-CV 12.1 <14.2 % 04/20/2017 20:05 [facility] RDW-SD 37.1 <46.0 fl 04/20/2017 20:05 [facility] PLT 200 141 - 377 K/cmm 04/20/2017 20:05 [facility] MPV 11.7 9.5 - 12.7 fl 04/20/2017 20:05 [facility] % Neutrophils 63.3 % 04/20/2017 20:05 [facility] % Lymphocytes 26.3 % 04/20/2017 20:05 [facility] % Monocytes 6.9 % 04/20/2017 20:05 [facility] % Eosinophils 2.6 % 04/20/2017 20:05 [facility] % Basophils 0.7 % 04/20/2017 20:05 [facility] % Immature Grans 0.2 % 04/20/2017 20:05 [facility] ABS Neutrophils 3.65 2.20 - 8.85 K/cmm 04/20/2017 20:05 [facility] ABS Lymphs 1.52 1.09 - 3.30 K/cmm 04/20/2017 20:05 [facility] ABS Monocytes 0.40 0.1 - 0.8 K/cmm 04/20/2017 20:05 [facility] ABS Eosinophils 0.15 0.03 - 0.61 K/cmm 04/20/2017 20:05 [facility] ABS Basophils 0.04 0.01 - 0.11 K/cmm 04/20/2017 20:05 [facility] ABS Immature Grans 0.01 0 - 0.06 K/cmm 04/20/2017 20:05 [facility] Type of Diff: Automated 04/20/2017 20:05 [facility] BLOOD SPECIMEN / Unknown 04/20/2017 19:16 EDT 04/20/2017 19:16 EDT Vida Campbell NP PACKAGES & DNA PROBE ORDERABLES [facility] [address] [place] [address] documented in this encounter Visit Diagnoses Not on filedocumented in this encounter Care Teams Special Diet Cook Relationship Specialty Start Date End Date None, Provider PCP - General 04/04/13 04/29/17 documented as of this encounter
--- OUTSIDE RECORDS SUMMARY | 2024-06-27 10:34 | XMS_ITS | Encounter Summary ---
Author Organization [facility] Address [address] [place] [address] Care Team Providers Care Family Preservation Officer Name Role Phone Unknown, Provider Primary Care Provider [phone] Encounter Details Date Type Department Care Team (Latest Contact Info) Description 06/07/2019 17:52 EDT - 06/08/2019 18:06 EDT Hospital Encounter [address] [address] Selene Galan, [place] [address] [facility] [place], [place] [id number] Discharge Disposition: Home or Self Care Social History Tobacco Use Types Packs/Day Years Used Date Smoking Tobacco: Never Assessed Sex and Gender Information Value Date Recorded Sex Assigned at Not on file Gender Identity Not on file Sexual Orientation Not on file documented as of this encounter Discharge Diagnoses Diagnosis Z00.00 Encounter for general adult medical examination without abnormal findings-Z00.00[ICD-10-CM] documented in this encounter Discharge Disposition Disposition Code Departure Means Destination Home or Self Care documented in this encounter Plan of Treatment Not on file documented as of this encounter Visit Diagnoses Not on filedocumented in this encounter Care Teams Family Preservation Officer Relationship Specialty Start Date End Date Unknown, Provider, PCP - General 04/30/17 04/25/23 documented as of this encounter
--- OUTSIDE RECORDS SUMMARY | 2024-06-27 10:34 | XMS_ITS | Encounter Summary ---
Author Organization [facility] Address [address] [place] [address] Care Team Providers Care Roll Carrier Name Role Phone Unknown, Provider Primary Care Provider Reason for Visit * Reason Comments Allergic Reaction pt to ed via ems, c/ o allergic reaction s/p reciving increasing doses of allergy tratments at the allergy clinic today. medicated by ems detective captain, pt with improving sxs. Encounter Details Date Type Department Care Team (Late st Contact Info) Description 04/30/2017 15:25 EDT - 04/30/2017 17:40 EDT Emergency [facility] Emergency Department - [address] [address] Ricardo Mejia, PA-C [address] [place] [address], [address] [place] [address] Emergency, Default, Allergic reaction, initial encounter (Primary Dx) Discharge Disposition: Home or Self Care Social History Tobacco Use Types Packs/Day Years Used Date Smoking Tobacco: Never Assessed Sex and Gender Information Value Date Recorded Sex Assigned at Not on file Gender Identity Not on file Sexual Orientation Not on file documented as of this encounter Last Filed Vital Signs Vital Sign Reading Time Taken Comments Blood Pressure 154/99 04/30/2017 1600 EDT Pulse - - Temperature 37.6 ??C (99.7 ??F) 04/30/2017 1538 EDT Respiratory Rate 18 04/30/2017 1715 EDT Oxygen Saturation 95% 04/30/2017 1715 EDT Inhaled Oxygen Concentration - - Weight 114.3 kg (252 lb) 04/30/2017 1538 EDT Height 177.8 cm (5' 10) 04/30/2017 1538 EDT Body Mass Index 36.16 04/30/2017 1538 EDT documented in this encounter Discharge Diagnoses Diagnosis T78.40XA Allergy, unspecified, initial encounter-T78.40XA[ICD-10-CM] documented in this encounter Discharge Instructions * Discharge Instructions* Ricardo Mejia PA - 04/30/2017 17:34 EDT Prednisone as directed, beginning tomorrow Albuterol inhaler as needed Benadryl 50 mg every 6-8 hours for 24 hours If you have facial swelling, lip swelling, tongue swelling, throat tightness or difficulty breathing, please use the EpiPen and return to the emergency department, call 911 Contact your cut plug packer tomorrow * Attachments The following attachments cannot be sent through Care Everywhere. * ALLERGIC REACTION (PASHTO) documented in this encounter Medications at Time of Discharge Medication Sig Dispensed Refills Start Date End Date predniSONE (DELTASONE) 50 mg tablet Take 1 Tab by mouth daily for 3 days. 3 Tab 04/30/2017 05/03/2017 documented as of this encounter Ordered Prescriptions Prescription Sig Dispensed Refills Start Date End Da te predniSONE (DELTASONE) 50 mg tablet Take 1 Tab by mouth daily for 3 days. 3 Tab 04/30/2017 05/03/2017 documented in this encounter Discharge Disposition Disposition Code Departure Means Destination Home or Self Care Car Home documented in this encounter ED Notes * Musa Lara RN - 04/30/2017 1700 EDT Pt ambulated to bathroom with steady gait and without assist. * Ricardo Mejia PA - 04/30/2017 1630 EDT DOS: 04/30/2017 Chief Complaint Patient presents with ??? Allergic Reaction pt to ed via ems, c/o allergic reaction s/p reciving increasing doses of allergy tratments at the allergy clinic today. medicated by ems detective captain, pt with improving sxs. HPI The patient is a 47 y.o. male who presents today with Allergic Reaction (pt to ed via ems, c/o allergic reaction s/p reciving increasing doses of allergy tratments at the allergy clinic today. medicated by ems detective captain, pt with improving sxs.) HPI Comments: 47-year-old male presents after an allergic reaction. Patient was getting allergy shots when he developed shortness of breath roughly 2 minutes later. He was treated with epinephrine, 60 mg prednisone, 50 mg Benadryl and albuterol prior to arrival. Patient currently states he feels fine, denies any shortness of breath. He does not believe he had any facial, lip or tongue swelling.Denies any change in voice. Patient denies any hives or other rash. He does have another EpiPen with him. This occurred roughly 2 hours ago. The history is provided by the patient. Allergic Reaction Associated symptoms: shortness of breath Associated symptoms: no rash Review of Systems Review of Systems HENT: Positive for facial swelling. Respiratory: Positive for shortness of breath. Negative for stridor. Skin: Negative for rash. Allergies Allergen Reactions ??? Mold Vital Signs Temp: 37.6 ??C (99.7 ??F) Temp src: Temporal Heart Rate: 94 BPM Resp: 18 SpO2: 95 % BP: (!) 154/99 BP MAP: 111 mm Hg Physical Exam Constitutional: He appears well-developed and well-nourished. No distress. HENT: Head: Normocephalic and atraumatic. Mouth/Throat: Oropharynx is clear and moist. No oropharyngeal swelling Eyes: EOM are normal. Neck: Normal range of motion. Cardiovascular: Regular rhythm, normal heart sounds and intact distal pulses. Tachycardia present. Pulmonary/Chest: Effort normal and breath sounds normal. No stridor. No respiratory distress. He has no wheezes. Breathing nonlabored Neurological: He is alert. He has normal strength. He is not disoriented. No sensory deficit. Skin: Skin is warm and dry. No rash noted. Rash is not urticarial. Psychiatric: He has a normal mood and affect. His behavior is normal. Nursing note and vitals reviewed. RESULTS EKG orders: None Radiology orders: None ED Lab Results Labs Reviewed - No data to display Relevant Data Procedures ED COURSE A medical screening exam was performed. Patient presents after an allergic reaction while getting allergy shots. Prior to arrival he was given epinephrine, prednisone, Benadryl and albuterol with improvement. He has no complaints while here. He was observed, continues to have no complaints. On repeat exam, no wheezing. He has an EpiPen with him. Given short course of prednisone. Given an albuterol inhaler. Discharged in no acute distress with return precautions. ASSESSMENT AND PLAN Final diagnoses: Allergic reaction, initial encounter DISPOSITION: Discharged The patient's pain was managed to an adequate level weighing risk vs. benefit of further medications. Upon departure from the Emergency Department, the patient's pain was 0 on a zero to ten scale. Condition at departure from the Emergency Department: Good PCP: Doctor Unknown MDM Number of Diagnoses or Management Options Allergic reaction, initial encounter: Amount and/or Complexity of Data Reviewed Review and summarize past medical records: yes Geronimo Sewell was consulted and agrees with treatment plan. 05/01/2017 13:31 No flowsheet data found. documented in this encounter Plan of Treatment Not on file documented as of this encounter Visit Diagnoses Diagnosis Allergic reaction, initial encounter- Primary documented in this encounter Care Teams Roll Carrier Relationship Specialty Start Date End Date Unknown, Provider, PCP - General 04/30/17 04/25/23 documented as of this encounter
--- OUTSIDE RECORDS SUMMARY | 2024-06-27 10:34 | XMS_ITS | Encounter Summary ---
Author Organization [facility] Address [address] [place] [address] Care Team Providers Care Financial Systems Administrator Name Role Phone None, Provider Primary Care Provider Unavailabl e Encounter Details Date Type Department Care Team (Latest Contact Info) Description 08/31/2015 15:44 EDT - 08/31/2015 23:59 EDT Hospital Encounter [address] [address] Unknown, Provider, Discharge Disposition: Home or Self Care Social History Tobacco Use Types Packs/Day Years Used Date Smoking Tobacco: Never Assessed Sex and Gender Information Value Date Recorded Sex Assigned at Not on file Gender Identity Not on file Sexual Orientation Not on file documented as of this encounter Discharge Disposition Disposition Code Departure Means Destination Home or Self [facility] documented in this encounter Plan of Treatment Not on file documented as of this encounter Visit Diagnoses Not on filedocumented in this encounter Care Teams Financial Systems Administrator Relationship Specialty Start Date End Date None, Provider PCP - General 04/04/13 04/29/17 documented as of this encounter
--- OUTSIDE RECORDS SUMMARY | 2024-06-27 10:34 | XMS_ITS | Referral Summary ---
Author Organization [facility] Address [address] [place] [address] Care Team Providers Care Career Development Director Name Role Phone Unavailable Primary Care Provider Unavailabl e Social History Tobacco Use Types Packs/Day Years Used Date Smoking Tobacco: Never Assessed Sex and Gender Information Value Date Recorded Sex Assigned at Not on file Gender Identity Not on file Sexual Orientation Not on file Plan of Treatment Not on file
--- OUTSIDE RECORDS SUMMARY | 2024-06-27 10:34 | XMS_ITS | Encounter Summary ---
Author Organization [facility] Address [address] [place] [address] Care Team Providers Care Metal Buffer Name Role Phone Unknown, Provider Primary Care Provider [phone] Encounter Details Date Type Department Care Team (Late st Contact Info) Description 06/07/2019 Results Only [facility] [phone] Selene Galan PA-C [address] [place] [address] Social History Tobacco Use Types Packs/Day Years Used Date Smoking Tobacco: Never Assessed Sex and Gender Information Value Date Recorded Sex Assigned at Not on file Gender Identity Not on file Sexual Orientation Not on file documented as of this encounter Plan of Treatment Not on file documented as of this encounter Procedures Procedure Name Priority Date/Time Associated Diagnosis Comments THYROID CASCADE Routine 06/07/2019 9:20 EDT COMPLETE BLOOD COUNT Routine 06/07/2019 9:20 EDT LIPID PROFILE (INCLUDES CHOLESTEROL, TRIGLYCERIDES, HDL, LDL) Routine 06/07/2019 9:20 EDT COMPREHENSIVE METABOLIC PANEL (CMP) Routine 06/07/2019 9:20 EDT documented in this encounter Results * THYROID CASCADE (06/07/2019 9:20 EDT) TSH 2.79 0.47 - 4.68 uIU/ml 06/07/2019 20:14 EDT [facility] Comment: TSH cascade is not recommended for patients in which pituitary or hypothalamic disorders are suspected. The results of this assay can be falsely lowered due to the consumption of Biotin. BLOOD SPECIMEN / Unknown 06/07/2019 9:20 EDT 06/07/2019 19:14 EDT Selene Dietrichdebra PA-C CHEMISTRY & BLOOD G ORDERABLES Performing Organization Address [facility] Co de Phone Number [facility] [address] [place] [address] * LIPID PROFILE (INCLUDES CHOLESTEROL, TRIGLYCERIDES, HDL, LDL) (06/07/2019 9:20 EDT) Cholesterol 171 mg/dl 06/07/2019 19:36 T [facility] Comment: Desirable:<200 Borderline High:200-239 High:>tu=054 Triglycerides 104 mg/dl 06/07/2019 19:36 [facility] Comment: Normal:<150 Borderline High:150-199 High:200-499 Very High:>ii=771 HDL 38 mg/dl 06/07/2019 19:36 [facility] Comment: Low:<40 Normal:40-60 Desirable: >60 LDL, Calculated 112 mg/dl 9 19:36 [facility] Comment: Optimal:<100 Near Optimal:100-129 Borderline High:130-159 High:160-189 Very High:>gh=563 Chol/HDL Ratio 4.5 06/07/2019 19:36 [facility] Fasting? Unknown 06/07/2019 19:36 [facility] Non HDL Cholesterol 133 mg/dl 06/07/2019 19:36 [facility] Comment: Desirable:<130 Borderline:130-159 High: 160-189 Very High: >pu=099 BLOOD SPECIMEN / Unknown 06/07/2019 9:20 EDT 06/07/2019 19:14 EDT Selene Gloria Adama PA-C CHEMISTRY & BLOOD G ORDERABLES Performing Organization Address [facility] Co de Phone Number [facility] [address] [place] [address] * (ABNORMAL) COMPREHENSIVE METABOLIC PANEL (CMP) (06/07/2019 9:20 [facility]) Potassium 5.2(H) 3.5 - 5.0 mEq/L 06/07/2019 19:36 [facility] Sodium 138 136 - 145 mEq/L 06/07/2019 19:36 [facility] Chloride 102 96 - 110 mEq/L 06/07/2019 19:36 [facility] CO2 28 22 - 32 mEq/L 06/07/2019 19:36 [facility] Total Alkaline Phosphatase 52 38 - 126 U/L 06/07/2019 19:36 [facility] Bilirubin, Total 0.6 <1.4 mg/dl 06/07/20 19:36 [facility] AST 29 15 - 46 U/L 06/07/2019 19:36 [facility] ALT 51 21 - 72 U/L 06/07/2019 19:36 [facility] Albumin 4.5 3.4 - 4.9 g/dl 06/07/2019 19:36 [facility] Total Protein 6.8 6.3 - 8.2 g/dl 06/07/2019 19:36 [facility] Creatinine 0.86 0.66 - 1.25 mg/dl 06/07/2019 19:36 [facility] GFR, Calculated 103 >60 ml/min/1.7 3m2 06/07/2019 19:36 [facility] Comment: eGFR calculated using CKD-EPI equation for non Americans. Multiply eGFR by 1.16 for Americans. BUN 19 10 - 26 mg/dl 06/07/2019 19:36 [facility] Calcium 9.2 8.5 - 10.5 mg/dl 06/07/2019 19:36 [facility] Calculated Calcium 8.8 8.5 - 10.5 mg/dl 06/07/2019 19:36 [facility] Glucose, Serum 94 70 - 100 mg/dl 06/07/2019 19:36 [facility] Fasting? Unknown 06/07/2019 19:36 EDT [facility] BLOOD SPECIMEN / Unknown 06/07/2019 9:20 EDT 06/07/2019 19:14 EDT Selene Galan PA-C CHEMISTRY & BLOOD G ORDERABLES Performing Organization Address [facility] de Phone Number [facility] [address] [place] [address] * COMPLETE BLOOD COUNT (06/07/2019 9:20 EDT) WBC 4.15 4.0 - 10.4 K/cmm 06/07/2019 19:32 [facility] RBC 5.13 4.36 - 5.78 M/cmm 06/07/2019 19:32 [facility] Hemoglobin 14.8 13.8 - 17.3 gm/dl 06/07/2019 19:32 [facility] HCT 43.7 39.5 - 50.2 % 06/07/2019 19:32 [facility] MCV 85 81 - 95 fl 06/07/2019 19:32 [facility] MCH 28.8 27.6 - 33.0 pg 06/07/2019 19:32 [facility] MCHC 33.9 32.8 - 36.4 gm/dl 06/07/2019 19:32 [facility] RDW-CV 12.4 <14.2 % 06/07/2019 19:32 [facility] RDW-SD 38.5 <46.0 fl 06/07/2019 19:32 [facility] PLT 183 141 - 377 K/cmm 06/07/2019 19:32 [facility] MPV 11.1 9.5 - 12.7 fl 06/07/2019 19:32 [facility] BLOOD SPECIMEN / Unknown 06/07/2019 9:20 EDT 06/07/2019 19:14 EDT Selene Galan PA-C HEMATOLOGY & PF4 OR DERABLES [facility] [address] [place] [address] documented in this encounter Visit Diagnoses Not on filedocumented in this encounter Care Teams Metal Buffer Relationship Specialty Start Date End Date Unknown, Provider, PCP - General 04/30/17 04/25/23 documented as of this encounter
--- OUTSIDE RECORDS SUMMARY | 2024-06-27 10:34 | XMS_ITS | Encounter Summary ---
Author Organization [facility] Address [address] [place] [address] Care Team Providers Care Shotgun Shell Loading Machine Operator Name Role Phone None, Provider Primary Care Provider Unavailabl e Encounter Details Date Type Department Care Team (Latest Contact Info) Description 11/13/2015 16:33 EST - 11/13/2015 23:59 EST Hospital Encounter [id number] [place] [address] Nikolas Ventura, Discharge Disposition: Auto Discharge Social History Tobacco Use Types Packs/Day Years Used Date Smoking Tobacco: Never Assessed Sex and Gender Information Value Date Recorded Sex Assigned at Not on file Gender Identity Not on file Sexual Orientation Not on file documented as of this encounter Discharge Diagnoses Diagnosis Z01.89 Encounter for other specified special examinations-Z01.89[ICD-10-CM] documented in this encounter Discharge Disposition Disposition Code Departure Means Destination Auto Discharge Home documented in this encounter Plan of Treatment Not on file documented as of this encounter Procedures Procedure Name Priority Date/Time Associated Diagnosis Comments SED RATE Routine 11/13/2015 19:01 EST COMPLETE BLOOD COUNT Routine 11/13/2015 19:01 EST C REACTIVE PROTEIN Routine 11/13/2015 19 :01 EST COMPREHENSIVE METABOLIC PANEL (CMP) Routine 11/13/2015 19:01 EST CHEST PA AND LATERAL 11/13/2015 16:59 EST documented in this encounter Results * SED. RATE:YOSEF (11/13/2015 19:01 EST) Sed. Rate Yosef Disregard previous report, specimen clotted 0 - 15 mm/hr 11/13/2015 19:09 [facility] Comment:Corrected on 11/13 A T 1909: Previously reported as 4 BLOOD SPECIMEN / Unknown 11/13/2015 19:01 EST 11/13/2015 19:01 EST Nikolas Ventura DO HEMATOLOGY & PF4 OR DERABLES Performing Organization Address [facility] Co de Phone Number [facility] [address] [place] [address] * (ABNORMAL) C REACTIVE PROTEIN (11/13/2015 19:01 EST) C Reactive Protein 21.6(H) <10.0 mg/L 11/13/2015 19:46 [facility] Comment: Note units change to mg/L. Values will be 10 fold higher than with previous units of mg/dl. BLOOD SPECIMEN / Unknown 11/13/2015 19:01 EST 11/13/2015 19:01 EST Nikolas Ventura DO CHEMISTRY & BLOOD G ORDERABLES Performing Organization Address [facility] Co de Phone Number [facility] [address] [place] [address] * COMPREHENSIVE METABOLIC PANEL (CMP) (11/13/2015 19:01 EST) Potassium 4.7 3.5 - 5.0 mEq/L 11/13/2015 19:46 [facility] Sodium 139 136 - 145 mEq/L 11/13/2015 19:46 [facility] Chloride 102 96 - 110 mEq/L 11/13/2015 19:46 [facility] CO2 25 24 - 32 mEq/L 11/13/2015 19:46 [facility] Total Alkaline Phosphatase 72 38 - 126 U/L 11/13/2015 19:46 [facility] Bilirubin, Total 0.6 <1.4 mg/dl 11/13/20 15 19:46 [facility] AST 43 15 - 46 U/L 11/13/2015 19:46 [facility] ALT 69 21 - 72 U/L 11/13/2015 19:46 [facility] Albumin 4.5 3.4 - 4.9 g/dl 11/13/2015 19:46 [facility] Total Protein 7.3 6.3 - 8.2 g/dl 11/13/2015 19:46 [facility] Creatinine 1.05 0.66 - 1.25 mg/dl 11/13/2015 19:46 [facility] GFR, Calculated 87 >60 ml/min/1.7 3m2 11/13/2015 19:46 [facility] Comment: eGFR calculated using CKD-EPI equation for non Americans. Multiply eGFR by 1.16 for Americans. BUN 19 10 - 26 mg/dl 11/13/2015 19:46 [facility] Calcium 9.6 8.5 - 10.5 mg/dl 11/13/2015 19:46 [facility] Calculated Calcium 9.5 8.5 - 10.5 mg/dl 11/13/2015 19:46 [facility] Glucose, Serum 93 70 - 100 mg/dl 11/13/2015 19:46 [facility] Fasting? Unknown 11/13/2015 19:01 [facility] BLOOD SPECIMEN / Unknown 11/13/2015 19:01 EST 11/13/2015 19:01 EST Nikolas Ventura DO CHEMISTRY & BLOOD G ORDERABLES Performing Organization Address City/State/[facility] Co de Phone Number [facility] [address] [place] [address] * HEMAGRAM (11/13/2015 19:01 EST) WBC Clotted 4.0 - 10.4 K/cmm 11/13/2015 19:08 [facility] Comment: Specimen unsuitable for analysis. Credit Issued RBC Clotted 4.36 - 5.78 M/cmm 11/13/2015 19:08 [facility] Comment: Specimen unsuitable for analysis. Credit Issued Hemoglobin Clotted 13.8 - 17.3 gm/dl 11/13/2015 19:08 [facility] Comment: Specimen unsuitable for analysis. Credit Issued HCT Clotted 39.5 - 50.2 % 11/13/2015 19:08 [facility] Comment: Specimen unsuitable for analysis. Credit Issued MCV Clotted 81 - 95 fl 11/13/2015 19:08 [facility] Comment: Specimen unsuitable for analysis. Credit Issued MCH Clotted 27.6 - 33.0 pg 11/13/2015 19:08 [facility] Comment: Specimen unsuitable for analysis. Credit Issued Hypochromia Clotted 11/13/2015 19:08 [facility] Comment: Specimen unsuitable for analysis. Credit Issued MCHC Clotted 32.8 - 36.4 gm/dl 11/13/2015 19:08 [facility] Comment: Specimen unsuitable for analysis. Credit Issued RDW-CV Clotted 11.8 - 14.1 % 11/13/2015 19:08 [facility] Comment: Specimen unsuitable for analysis. Credit Issued RDW-SD Clotted 36.5 - 45.9 fl 11/13/2015 19:08 [facility] Comment: Specimen unsuitable for analysis. Credit Issued Anisocytosis Clotted 11/13/2015 19:08 [facility] Comment: Specimen unsuitable for analysis. Credit Issued PLT Clotted 141 - 320 K/cmm 11/13/2015 19:08 [facility] Comment: Specimen unsuitable for analysis. Credit Issued MPV Clotted 7.5 - 11.2 fl 11/13/2015 19:08 [facility] Comment: Specimen unsuitable for analysis. Credit Issued Condition Clotted 11/13/2015 19:08 [facility] Comment: Specimen unsuitable for analysis. Credit Issued BLOOD SPECIMEN / Unknown 11/13/2015 19:01 EST 11/13/2015 19:01 EST Nikolas Ventura DO HEMATOLOGY & PF4 OR DERABLES [facility] [address] [place] [address] * CHEST PA AND LATERAL (11/13/2015 16:59 EST) Anatomical Region Laterality Modality Other 11/13/2015 16:5 9 EST 11/14/2015 9:03 EST Narrative 11/14/2015 9:03 EST CHEST PA AND LATERAL ??11/13/2015 4:59 PM Clinical History/Comments: Wheezing and cough COMPARISON: 11/11/2007. TECHNIQUE: Two views of the chest were performed using dual energy technique with bone and soft tissue reconstruction. FINDINGS: Soft tissues: ??Normal. Bones: Normal. Cardiac and mediastinal contours:Normal. Lungs: Normal. ?? Pleura/diaphragms:Normal. IMPRESSION: Normal chest x-ray. Procedure Note Aureliano Goodwin MD - 11/14/2015 CHEST PA AND LATERAL 11/13/2015 4:59 PM Clinical History/Comments: Wheezing and cough COMPARISON: 11/11/2007. TECHNIQUE: Two views of the chest were performed using dual energy technique with bone and soft tissue reconstruction. FINDINGS: Soft tissues: Normal. Bones: Normal. Cardiac and mediastinal contours:Normal. Lungs: Normal. Pleura/diaphragms:Normal. IMPRESSION: Normal chest x-ray. Nikolas [facility] DI[facility]NOST[facility] IM[facility] ING ORDERABLES documented in this encounter Visit Diagnoses Not on filedocumented in this encounter Care Teams Shotgun Shell Loading Machine Operator Relationship Specialty Start Date End Date None, Provider PCP - General 04/04/13 04/29/17 documented as of this encounter
--- OUTSIDE RECORDS SUMMARY | 2024-06-27 10:34 | XMS_ITS | Clinical Summary ---
Author Organization [facility] Address [address] [place] [address] Care Team Providers Care Television News Photographer Name Role Phone Unavailable Primary Care Provider Unavailabl e Social History Tobacco Use Types Packs/Day Years Used Date Smoking Tobacco: Never Assessed Sex and Gender Information Value Date Recorded Sex Assigned at Not on file Gender Identity Not on file Sexual Orientation Not on file Plan of Treatment Not on file
--- OUTSIDE RECORDS SUMMARY | 2024-06-27 10:34 | XMS_ITS | Encounter Summary ---
Author Organization [facility] Address [address] [place] [address] Care Team Providers Care Dental Sales Representative Name Role Phone Unknown, Provider Primary Care Provider [phone] Encounter Details Date Type Department Care Team (Latest Contact Info) Description 06/16/2019 19:01 EDT - 06/16/2019 19:02 EDT Hospital Encounter [address] [address] Selene Galan, [place] [address] [facility] [place], [place] [id number] Discharge Disposition: Home or Self Care Social [...] on filedocumented in this encounter Care Teams Dental Sales Representative Relationship Specialty Start Date End Date Unknown, Provider, PCP - General 04/30/17 04/25/23 documented as of this encounter
--- OUTSIDE RECORDS SUMMARY | 2024-06-27 10:34 | XMS_ITS | Encounter Summary ---
Author Organization [facility] Address [address] [place] [address] Care Team Providers Care Mechanic Sound Technician Name Role Phone Unknown, Provider Primary Care Provider [phone] Encounter Details Date Type Department Care Team (Late st Contact Info) Description 06/16/2019 Results Only [facility] [phone] Selene Galan PA-C [address] [place] [address] Social History Tobacco Use Types Packs/Day Years Used Date Smoking Tobacco: Never Assessed Sex and Gender Information Value Date Recorded Sex Assigned at Not on file Gender Identity Not on file Sexual Orientation Not on file documented as of this encounter Plan of Treatment Not on file documented as of this encounter Procedures Procedure Name Priority Date/Time Associated Diagnosis Comments POTASSIUM Routine 06/16/2019 8:25 EDT documented in this encounter Results * (ABNORMAL) POTASSIUM (06/16/2019 8:25 EDT) Potassium 5.3(H) 3.5 - 5.0 mEq/L 06/16/2019 19:25 EDT [facility] Comment: Slight hemolysis Hemolysis may elevate potassium result. BLOOD SPECIMEN / Unknown 06/16/2019 8:25 EDT 06/16/2019 19:12 EDT Selene Galan PA-C CHEMISTRY & BLOOD G ORDERABLES [facility] [address] [place] [address] documented in this encounter Visit Diagnoses Not on filedocumented in this encounter Care Teams Mechanic Sound Technician Relationship Specialty Start Date End Date Unknown, Provider, PCP - General 04/30/17 04/25/23 documented as of this encounter
--- OUTSIDE RECORDS SUMMARY | 2024-06-27 10:34 | XMS_ITS | Encounter Summary ---
Author Organization [facility] Address [address] [place] [address] Care Team Providers Care Wearing Apparel Folder Name Role Phone Unknown, Provider Primary Care Provider [phone] Encounter Details Date Type Department Care Team (Late st Contact Info) Description 06/23/2019 Results Only [facility] [phone] Selene Galan PA-C [address] [place] [address] Social History Tobacco Use Types [...] Priority Date/Time Associated Diagnosis Comments POTASSIUM Routine 06/23/2019 8:40 EDT documented in this encounter Results * POTASSIUM (06/23/2019 8:40 EDT) Potassium 5.0 3.5 - 5.0 mEq/L 06/23/2019 19:33 EDT [facility] BLOOD SPECIMEN / Unknown 06/23/2019 8:40 EDT 06/23/2019 19:10 EDT Selene Galan PA-C CHEMISTRY & BLOOD G ORDERABLES [facility] [address] [place] [address] documented in this encounter Visit Diagnoses Not on filedocumented in this encounter Care Teams Wearing Apparel Folder Relationship Specialty Start Date End Date Unknown, ProviderMD PCP - General 04/30/17 04/25/23 documented as of this encounter
--- OUTSIDE RECORDS SUMMARY | 2024-06-27 10:34 | XMS_ITS | Clinical Summary ---
Author Organization [facility] Address [address] [place] [address] Care Team Providers Care Color Coater Name Role Phone Isa Walker MD Primary Care Provider [phone] Allergies Active Allergy Reactions Criticality Noted Date [...] Date Diagnosed Date Encounter for screening colonoscopy Surgical History Surgery Date Site/Laterality Comments LIPOMA RESECTION 11/16/2011 - 11/15/2012 Medical History Medical History Date Comments Hypertension Social History Tobacco Use Types Packs/Day Years [...] on file Sexual Orientation Not on file Obstetrics History Last Filed Vital Signs Vital Sign Reading [...] 41.18 10/21/2022 0812 EST Plan of Treatment Health Maintenance Due Date Last Done Comments Hepatitis C Screen 1970 Hepatitis B Vaccine (1 of 3 - 19+ 3-dose series) 01/01 COVID-19 Vaccine ( season) 2023 Colonoscopy (Colon Cancer Screening) Discontinued 04/2022 Colorectal Cancer Screening Discontinued Cologuard (Colon Cancer Screening) Discontinued FIT Test (Colon Cancer Screening) Discontinued Sigmoidoscopy (Colon Cancer Screening) Discontinued Procedures Procedure Name Priority Date/Time Associated Diagnosis Comments COLONOSCOPY Routine 10/21/2022 8:45 EST Encounter for screening colonoscopy from Last 3 Months or Most Recently Relevant to Health Maintenance Results * COLONOSCOPY (10/21/2022 8:45 EST) Anatomical Region Laterality Modality Endoscopy Narrative 10/21/2022 8:45 EST [facility] ?? [address], [place], [place] [address] ?? Patient Name ?EPI YOUNG Date of ?1970 Record Number ?[id number] Date/Time of Procedure ?10/21/2022, 08:45:00 AM Endoscopist ?Handy Riley ?? Golf Stud Riveter ? Referring Physician(s) ?? Debbie Chan M.D. Anesthesiologist ? Procedure Performed: COLONOSCOPY Indications for Exam: Screening Colonoscopy. Instruments: ? [id number] ([id number]) Medications: ?Fentanyl 100 mcg, Versed 5 mg [...] AM ?? Sedation End: 08:51:29 AM Signature: Handy Riley M.D. F.A.C.S This note was electronically signed on 10/21/2022 11:41:44 AM By Handy Riley M.D., F.A.C.S Luz Maria Chan CARRIAGE DOGGER GI PROCEDURE ORDERAB LES from Last 3 Months or Most Recently Relevant to Health Maintenance Care Teams Color Coater Relationship Specialty Start Date End Date Isa Walker MD [address] [place] [address] PCP - General 04/26/23
--- OUTSIDE RECORDS SUMMARY | 2024-06-27 10:34 | XMS_ITS | Encounter Summary ---
Author Organization [facility] Address [address] [place] [address] Care Team Providers Care Insole Coverer Name Role Phone None, Provider Primary Care Provider Unavailabl e Encounter Details Date Type Department Care Team (Late st Contact Info) Description 04/04/2013 Phlebotomy Only [facility] [address] [place] [address] Ingredient Scaler, Outpatient Social History Tobacco Use Types Packs/Day Years Used Date Smoking Tobacco: Never Assessed Sex and Gender Information Value Date Recorded Sex Assigned at Not on file Gender Identity Not on file Sexual Orientation Not on file documented as of this encounter Plan of Treatment Not on file documented as of this encounter Visit Diagnoses Not on filedocumented in this encounter Care Teams Insole Coverer Relationship Specialty Start Date End Date None, Provider PCP - General 04/04/13 04/29/17 documented as of this encounter
--- OUTSIDE RECORDS SUMMARY | 2024-06-27 10:34 | XMS_ITS | Encounter Summary ---
Author Organization [facility] Address [address] [place] [address] Care Team Providers Care Heel Curver Name Role Phone None, Provider Primary Care Provider Unavailabl e Encounter Details Date Type Department Care Team (Latest Contact Info) Description 04/04/2013 7:16 EDT - 04/04/2013 23:59 EDT Hospital Encounter [address] [address] Unknown, Provider, Nikolas Ventura DO Discharge Disposition: Auto Discharge Social History Tobacco [...] Procedure Name Priority Date/Time Associated Diagnosis Comments GLUCOSE, PLASMA Routine 04/04/2013 7:49 EDT LIPID PROFILE (INCLUDES CHOLESTEROL, TRIGLYCERIDES, HDL, LDL) Routine 04/04/2013 7:49 EDT documented in this encounter Results * LIPID PROFILE (INCLUDES CHOLESTEROL, TRIGLYCERIDES, HDL, LDL) (04/04/2013 7:49 EDT) Cholesterol 181 mg/dl [facility] Comment: Desirable:<200 Borderline High:200-239 High:>vq=603 Triglycerides 148 mg/dl [facility] Comment: Normal:<150 Borderline High:150-199 High:200-499 Very High:>hu=996 HDL 30 mg/dl [facility] Comment: Low:<40 Normal:40-60 Desirable: >60 LDL, Calculated 121 mg/dl [facility] Comment: Optimal:<100 Near Optimal:100-129 Borderline High:130-159 High:160-189 Very High:>gf=516 Chol/HDL Ratio 6.0 [facility] Fasting? YES [facility] 04/04/2013 7:49 EDT 04/04/2013 9:58 EDT Nikolas Ventura DO CHEMISTRY & BLOOD G ORDERABLES Performing Organization Address [facility] Co de Phone Number [facility] [address] [place] [address] * GLUCOSE, PLASMA (04/04/2013 7:49 EDT) Glucose, Plasma 80 70 - 100 mg/dl [facility] 04/04/2013 7:49 EDT 04/04/2013 9:58 EDT Nikolas Ventura DO CHEMISTRY & BLOOD G ORDERABLES Performing Organization Address [facility] Co de Phone Number [facility] [address] [place] [address] documented in this encounter Visit Diagnoses Not on filedocumented in this encounter Care Teams Heel Curver Relationship Specialty Start Date End Date None, Provider PCP - General 04/04/13 04/29/17 documented as of this encounter
--- OUTSIDE RECORDS SUMMARY | 2024-06-27 10:34 | XMS_ITS | Encounter Summary ---
Author Organization [facility] Address [address] [place] [address] Care Team Providers Care Phone Screener Name Role Phone Unknown, Provider Primary Care Provider [phone] Reason for Referral * Referral (Routine/Next Available) - Receiving Office to Obtain Authorization Specialty Diagnoses / Procedures Referred By Mikala lopez Referred To Contact Diagnoses Encounter for screening colonoscopy Procedures COLONOSCOPY Luz Maria Chan FNP [address], [address] [place] [address] Referral ID Status Reason Start Date Expiration Date Visits Requested Visits Authorized [id number] Receiving Office to Obtain Authorization 1 1 1 Reason for Visit * Auth/Cert (Routine) Specialty Diagnoses / Procedures Referred By Mikala lopez Referred To Contact Referral ID Status Reason Start Date Expiration Date Visits Re quested Visits Authorized [id number] 1 1 Encounter Details Date Type Department Care Team (Latest Contact Info) Description 10/21/2022 7:35 EST - 10/21/2022 23:59 EST Hospital Encounter [facility] Endoscopy [address] [place] [address] Handy Riley MD [address] [facility] [address] [place] [address] Encounter for screening colonoscopy Discharge Disposition: Home or Self Care Social [...] Sign Reading Time Taken Comments Blood Pressure 117/87 10/21/2022 0925 EST Pulse - - Temperature 36.7 ??C (98.1 ??F) 10/21/2022 08 EST Respiratory Rate 14 10/21/2022 0925 EST Oxygen Saturation 95% 10/21/2022 0925 EST Inhaled Oxygen Concentration - - Weight 130.2 kg (287 lb) 10/21/2022 08 EST Height 177.8 cm (5' 10) 10/21/2022 08 EST Body Mass Index 41.18 10/21/2022 08 EST documented in this encounter Medications at Time of Discharge Medication Sig Dispensed Refills Start Date End Date atorvastatin (LIPITOR) 40 mg tablet Take 1 Tablet by mouth every evening. 05/07/2022 chlorthalidone (HYGROTON) 25 mg tablet Take 0.5 Tablets by mouth daily. Cholecalciferol, Vitamin D3, 10 mcg (400 unit) tablet Take 400 Units by mouth daily. nicotine polacrilex (NICORETTE) 2 mg gum Take 1 Each by mouth every 2 hours. semaglutide (RYBELSUS) 14 mg tablet Take 14 mg by mouth daily. lisinopriL (PRINIVIL) 10 mg tablet Take 1 Tablet by mouth daily. 04/26/2023 verapamil (CALAN-SR) 180 mg CR tablet Take 1 Tablet by mouth daily. 04/26/2023 documented as of this encounter Discharge Disposition Disposition Code Departure Means Destination Home or Self Fpc documented in this encounter H&P Notes * Handy Riley MD - 10/21/2022 0845 EST Endoscopy Sedation for Procedure History & Physical Date: 10/21/2022 Time: 8:30 Location: [facility] Endoscopy Planned Procedure: Colonoscopy Chief Complaint/Indications for Procedure: Encounter for screening colonoscopy History Previous Complication with Sedation and/or Anesthesia? No Allergies: Allergies Allergen Reactions ??? Mold Current Medications: Current Outpatient Medications Medication ??? chlorthalidone (HYGROTON) 25 mg tablet ??? Cholecalciferol, Vitamin D3, 10 mcg (400 unit) tablet ??? lisinopriL (PRINIVIL) 10 mg tablet ??? nicotine polacrilex (NICORETTE) 2 mg gum ??? semaglutide (RYBELSUS) 14 mg tablet ??? verapamil (CALAN-SR) 180 mg CR tablet Current Facility-Administered Medications Medication Route Frequency ??? sodium chloride 0.9 % (NS) infusion intravenous PRN Or ??? lactated ringers (LR) infusion intravenous PRN ??? lidocaine (PF) 10 mg/mL (1 %) injection 2 mg intradermal PRN ??? lidocaine (PF) 10 mg/mL (1 %) injection 2 mg intradermal PRN ??? ondansetron (PF) (ZOFRAN) injection 4 mg intravenous PRN ??? sodium chloride 0.9 % (flush) flush 3 mL intravenous PRN ??? sodium chloride 0.9 % (flush) flush 5 mL intravenous Q8H Past Medical History: Past Medical History: Diagnosis Date ??? Hypertension Social History: Past Surgical History: Procedure Laterality Date ??? LIPOMA RESECTION 2012 Social History Tobacco Use ??? Smoking status: Never ??? Smokeless tobacco: Former Substance Use Topics ??? Alcohol use: Yes Comment: very occasional Family History: History reviewed. No pertinent family history. Review of Systems as pertinent: Physical Exam Vital Signs: BP 138/86 Temp 36.7 ??C (98.1 ??F) Resp 15 Ht 177.8 cm (70) Wt (!) 130.2 kg (287 lb) SpO2 97% BMI 41.18 kg/m?? Heart Examination: Cardiac Regularity: Regular Respiratory Examination: Respiratory Pattern: Regular Breath Sounds Right: Clear Breath Sounds Left: Clear Abdominal Examination: Soft, non-tender, bowel sounds normal, no masses, no organomegaly Additional physical exam related to the proposed procedure, patient activity, disease state and treatment as pertinent: Assessment Previous complications with sedation or anesthesia?: No Airway Concerns: None/NA Anesthesia Classification: ASA 2 Plan: Proceed with sedation for procedure Fasting Time: Date of Last Liquid: 10/21/22 Time of Last Liquid: 0400 Date of Last Solid: 10/19/22 Time of Last Solid: 1700 Patient Appropriate Candidate for Planned Sedation?: Yes Handy Riley MD 10/21/2022 8:30 documented in this encounter Plan of Treatment Not on file documented as of this encounter Procedures Procedure Name Priority Date/Time Associated Diagnosis Comments ECG REPORT - SCANNED 10/24/2022 7:32 EST COLONOSCOPY Routine 10/21/2022 8:45 EST Encounter for screening colonoscopy documented in this encounter Results * ECG REPORT - SCANNED (10/24/2022 7:32 EST) 10/24/2022 7:32 EST Scan 2 Compressor Station Engineer PROCEDURE/MINOR ROLANDO GICAL ORDERABLES * COLONOSCOPY (10/21/2022 8:45 EST) Anatomical Region Laterality Modality Endoscopy Narrative 10/21/2022 8:45 EST [facility] ?? [address] [address] ?? Patient Name ?EPI YOUNG Date of ?1970 Record Number ?[id number] Date/Time of Procedure ?10/21/2022, 08:45:00 AM Endoscopist ?Handy Riley ?? Manager Process ? Referring Physician(s) ?? Debbie Chan M.D. Anesthesiologist ? Procedure Performed: COLONOSCOPY Indications for Exam: Screening Colonoscopy. Instruments: ? [id number] ([id number]) Medications: ?Fentanyl 100 mcg, Versed 5 mg [...] ?? Sedation End: 08:51:29 AM Signature: Paddy HuntA.C.Gerson This note was electronically signed on 10/21/2022 11:41:44 AM By Handy JcA.C.S Luz Maria Chan CLOTH MERC[employer]ING SUPERVISOR GI PROCEDURE ORDERAB LES documented in this encounter Visit Diagnoses Diagnosis Encounter for screening colonoscopy Special screening for malignant neoplasms, colon documented in this encounter Administered Medications Inactive Administered Medications - up to 3 most recent administrations Medication Order MAR Action Action Date Dose Rate Site fentaNYL citrate (PF) injection intravenous, As needed, Starting on Thu10/21/22 at 0831, Until Thu10/21/22 at 0853, Routine, Intraprocedure Given 10/21/2022 8:37 EST 25 mcg Given 10/21/2022 8:34 EST 25 mcg Given 10/21/2022 8:31 EST 50 mcg midazolam (VERSED) injection intravenous, As needed, Starting on Thu10/21/22 at 0831, Until Thu10/21/22 at 0853, Routine, Intraprocedure Given 10/21/2022 8:37 EST 1 mg IV Given 10/21/2022 8:33 EST 1 mg IV Given 10/21/2022 8:31 EST 3 mg documented in this encounter Historical Medications * This list may reflect changes made after this encounter. Medication Sig Dispensed Refills Start Date End Date nicotine polacrilex (NICORETTE) 2 mg gum Take 1 Each by mouth every 2 hours. Cholecalciferol, Vitamin D3, 10 mcg (400 unit) tablet Take 400 Units by mouth daily. semaglutide (RYBELSUS) 14 mg tablet Take 14 mg by mouth daily. chlorthalidone (HYGROTON) 25 mg tablet Take 0.5 Tablets by mouth daily. verapamil (CALAN-SR) 180 mg CR tablet Take 1 Tablet by mouth daily. 04/26/2023 lisinopriL (PRINIVIL) 10 mg tablet Take 1 Tablet by mouth daily. 04/26/2023 added in this encounter Orders Medications Ordered That Jeff ht Not Have Been Administered Count Last Ordered Date First Ordered Date lactated ringers (LR) infusion 1 10/21/2022 lidocaine (PF) 10 mg/mL (1 % ) injection 2 mg 2 10/21/2022 ondansetron (PF) (ZOFRAN) injection 4 mg 1 10/21/2022 sodium chloride 0.9 % (flush) flush 3 mL 1 10/21/2022 sodium chloride 0.9 % (flush) flush 5 mL 1 10/21/2022 sodium chloride 0.9 % (NS) infusion 1 10/21 Discharge Count Last Ordered Date First Orde red Date DISCHARGE PATIENT 1 10/21/2022 documented in this encounter Care Teams Phone Screener Relationship Specialty Start Date End Date Unknown, Provider, PCP - General 04/30/17 04/25/23 documented as of this encounter
[2024-06-27 16:48] LABS: Anion Gap 8.9 mmol/L (3-11); BUN 23 mg/dL (7-18); CO2 28.1 mmol/L (21.0-32.0); CREATININE 1.3 mg/dL (0.70-1.30); Calcium 9.5 mg/dL (8.5-10.1); Calculated LDL 56 mg/dL (<100); Chloride 102 mmol/L (98-107); Cholesterol 128 mg/dL (<200); Glucose 105 mg/dL (74-106); HDL Cholesterol 41 mg/dL (40-60); Potassium 4.3 mmol/L (3.5-5.1); Sodium 139 mmol/L (136-145); Triglyceride 159 mg/dL (<150)
== END 2024-06-27 10:32 | disposition home or self-care (01) ==
LOC: NCHCN 10:31
PROVIDERS: PCP Family Medicine; Visit Provider Family Medicine
DX: E78.5 Hyperlipidemia, unspecified (principal); I10 Essential (primary) hypertension
CPT/HCPCS: 80048; 80061

== ENCOUNTER 2025-07-03 16:28 | Outpatient (REF) | payer OTHER, SELFPAY ==
[2025-07-03 15:50] LABS: ALT 52 U/L (16-63); AST 27 U/L (15-37); Albumin 4.3 g/dL (3.4-5.0); Alkaline Phosphatase 75 U/L (46-116); Anion Gap 7.9 mmol/L (3-11); BUN 10 mg/dL (7-18); Bilirubin, Total 0.6 mg/dL (0.2-1.0); CO2 29.1 mmol/L (21.0-32.0); Calcium 9.5 mg/dL (8.5-10.1); Calculated LDL 58 mg/dL (<100); Chloride 103 mmol/L (98-107); Cholesterol 117 mg/dL (<200); Estimated GFR 90.00 (mL/min/1.73m2); Glucose 101 mg/dL (74-106); HDL Cholesterol 41 mg/dL (>or=40); Potassium 4.5 mmol/L (3.5-5.1); Sodium 140 mmol/L (136-145); Total Protein 7.4 g/dL (6.4-8.2); Triglyceride 92 mg/dL (<150)
[2025-07-03 16:22] LABS: Hemoglobin A1C 5.1 % (<5.7)
[2025-07-03 22:25] LABS: PSA, Screening 2.0 ng/mL (<=3.5)
== END 2025-07-03 16:29 | disposition home or self-care (01) ==
LOC: NCHCN 16:28
PROVIDERS: PCP Family Medicine; Visit Provider Family Medicine
DX: E78.5 Hyperlipidemia, unspecified (principal); Z12.5 Encounter for screening for malignant neoplasm of prostate; Z13.1 Encounter for screening for diabetes mellitus; I10 Essential (primary) hypertension
CPT/HCPCS: 80053; 80061; 84153; 83036